=== PATIENT | female | born 1940 | race Caucasian/White ===

== ENCOUNTER 2023-01-17 07:30 | Outpatient (OUT) | payer MEDICARE, SELFPAY ==
[2023-01-17 08:48] LABS: Free T4 1.21 ng/dL (0.76-1.46); Thyroid Stimulating Hormone 0.078 uIU/mL (0.358-3.740)
[2023-01-18 04:07] LABS: Triiodothyronine (T3) 111 ng/dL (71-180)
== END 2023-01-17 07:31 | disposition home or self-care (01) ==
PROVIDERS: PCP Internal Medicine; Visit Provider Internal Medicine
DX: R79.89 Other specified abnormal findings of blood chemistry (principal); E05.90 Thyrotoxicosis, unspecified without thyrotoxic crisis or storm
CPT/HCPCS: 36415; 84439; 84443; 84480

== ENCOUNTER 2023-04-28 07:57 | Outpatient (OUT) | payer MEDICARE, SELFPAY ==
[2023-04-28 08:12] LABS: Estimated GFR (African America 57 (>=60); Estimated GFR (Non-African Ame 47 (>=60)
--- NOTE | 2023-04-28 08:12 | CT_ITS ---
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 TECHNIQUE: CT imaging was performed through the chest, abdomen, and pelvis with intravenous contrast, utilizing CTA protocol. Multiplanar reformats were performed. Dose reduction techniques were achieved by using automated exposure control and/or adjustment of mA and/or kV according to patient size and/or use of iterative reconstruction technique. CHEST FINDINGS: Lungs: No consolidation, mass, or effusion. Airways: Normal. Mediastinum: No adenopathy. Aorta: No aneurysm. Cardiac: Normal size. No pericardial effusion. Pulmonary vasculature: Normal morphology. Bones: No acute bony abnormality. Axilla: No adenopathy. Thyroid gland: No abnormality demonstrated on provided imaging. Soft tissues: Unremarkable. Upper abdomen: Unremarkable. VASCULAR FINDINGS: CTA CHEST: Pulmonary vasculature: Normal morphology. Coronary arteries: No variant anatomy is demonstrated. No significant atherosclerotic disease. Aorta: Ascending aorta measures 3.4 cm descending thoracic aorta measures up to 3 cm. No aneurysm, occlusion, or dissection. No significant atherosclerotic disease. Atherosclerotic: No significant atherosclerotic disease. Aortic branches: Normal three-vessel configuration.Right subclavian: Widely patent where visualized. Right common carotid: Widely patent where visualized. Left common carotid: Widely patent where visualized. Left subclavian: Widely patent where visualized. CT/CT angio chest IMPRESSION: 1. Ectatic ascending and descending thoracic aorta measuring 3.4 and 3 cm respectively. No evidence of dissection or occlusion. 2. No acute abnormality. Electronically authenticated by: TRAY EDEN Date: 04/29/2023 14:47
--- NOTE | 2023-04-28 08:12 | US_ITS ---
[address] [address] Patient Name: SHARON MCKEON MRN: [id number] date: 1940 Sex: F Assigned Patient Location: LAB Current Patient Location: LAB Accession/Order Number: [id number] Exam Date: 04/28/2023 08:21 Report Date: 04/28/2023 14:12 At the request of: JOLENE DENT Procedure: US thyroid EXAMINATION: US thyroid HISTORY: Thyroid Nodule E04.1 COMPARISON: 10/27/2021 TECHNIQUE: Sonographic images of the thyroid gland were obtained. FINDINGS: The right thyroid lobe measures 4.4 x 2.3 x 2.6 cm. 2 focal nodules. The thyroid isthmus measures 4.2 mm. 2 focal nodules. The left thyroid lobe measures 4.6 x 1.6 x 1.9 cm. 2 focal nodules. The 2 most suspicious nodules: Nodule 1: Right thyroid lobe. 1.5 x 1.3 x 1.6 cm. Solid, hypoechoic, wide, smooth margins, no calcifications. TR 4 Nodule 2: Left thyroid lobe. 1.9 x 1.1 x 1.5 cm. Solid, hypoechoic, wide, smooth margins, no calcifications. TR 4 US/US thyroid IMPRESSION: Multinodular thyroid gland, grossly stable TI-RADS: The [employer] TI-RADS committee's white paper recommendations for thyroid lesions classified as TR4 (moderately suspicious) are listed below: > 1.0 cm. Follow-up ultrasound in 1, 2, 3, and 5 years. > 1.5 cm. FNA. J. Am Halina Radiol 2017;14:[id number]. Electronically authenticated by: VIRI AJ Date: 04/28/2023 14:12
== END 2023-04-28 07:58 | disposition home or self-care (01) ==
LOC: LAB 07:58
PROVIDERS: PCP Internal Medicine; Visit Provider Internal Medicine
DX: E04.1 Nontoxic single thyroid nodule (principal); I71.21 Aneurysm of the ascending aorta, without rupture; C50.911 Malignant neoplasm of unspecified site of right female breast; E04.2 Nontoxic multinodular goiter
CPT/HCPCS: 36415; 71275; 76536; 82565; Q9967

== ENCOUNTER 2023-05-10 10:24 | Outpatient (OUT) | payer MEDICARE, SELFPAY ==
--- NOTE | 2023-05-10 | MM_ITS ---
Patient Name: SHARON MCKEON MR#: [id number] : 1940 Exam Date: 05/10/2023 Ordering Doctor: DR Andrae Bojorquez D.O. RADIOLOGY REPORT PROCEDURE: MM TOMOSYNTHESIS SCREENING LT COMPARISON: MG MAMM SCREEN LT 3D CAD, 05/09/2022. MG MAMM SCREEN LT 3D CAD, 05/06/2021. INDICATIONS: screening Calculator Name NCI Breast Cancer Risk Assessment Tool 5 Year Breast Cancer Risk n/a% Lifetime Breast Cancer Risk n/a% Personal Breast Cancer Yes, Rt Breast CA Age 71 Personal Ovarian Cancer No Treatments Masectomy RT Breast with chemotherapy Family Cancers None LOCATION: [facility] BREAST COMPOSITION: Heterogeneously dense,which may obscure small masses. FINDINGS: DIAGNOSTIC CATEGORY 1--NEGATIVE. NO CHANGE FROM COMPARISON ASSESSMENT. LEFT BREAST: No significant suspicious finding. RECOMMENDATIONS: ROUTINE MAMMOGRAM AND CLINICAL EVALUATION IN 12 MONTHS. PLEASE NOTE: A NORMAL MAMMOGRAM DOES NOT EXCLUDE THE POSSIBILITY OF BREAST CANCER. A CLINICALLY SUSPICIOUS PALPABLE LUMP SHOULD BE BIOPSIED. Dictated by: Jerald Pulliam MD on 05/10/2023 at 11:33 Approved by: Jerald Pulliam MD on 05/10/2023 at 11:35
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
== END 2023-05-10 10:25 | disposition home or self-care (01) ==
LOC: MAMMO 10:24
PROVIDERS: PCP Internal Medicine; Visit Provider Internal Medicine
DX: Z12.31 Encounter for screening mammogram for malignant neoplasm of breast (principal); Z85.3 Personal history of malignant neoplasm of breast
CPT/HCPCS: 77063; 77067

== ENCOUNTER 2024-04-17 12:42 | Outpatient (OUT) | payer MEDICARE, SELFPAY ==
[2024-04-17 13:12] LABS: Basophils Percent Auto 0.5 % (0.2-2.0); Eosinophils Absolute Auto 0.2 10^3/uL (0.0-0.7); Hematocrit 46.7 % (36.0-48.0); Hemoglobin 15.3 g/dL (12.0-16.0); Immature Granulocytes Abs Auto 0.03 10^3/uL (0.00-0.03); Immature Granulocytes Pct Auto 0.4 % (0.0-0.5); Lymphocytes Absolute Auto 1.3 10^3/uL (1.2-3.8); Lymphocytes Percent Auto 17.5 % (20.5-60.0); Mean Corpuscular HGB Conc 32.8 g/dL (29.9-35.2); Mean Corpuscular Hemoglobin 29.6 pg (26.7-34.0); Mean Corpuscular Volume 90.3 fL (81.0-99.0); Monocytes Absolute Auto 0.7 10^3/uL (0.3-0.8); Monocytes Percent Auto 9.4 % (1.7-12.0); Neutrophils Absolute Auto 5.2 10^3/uL (1.4-6.5); Neutrophils Percent Auto 70.2 % (43.0-75.0); Platelet Count 397 10^3/uL (150-450); Red Blood Count 5.17 10^6/uL (4.20-5.40); Red Cell Distribution Width 13.2 % (11.0-15.0); White Blood Count 7.5 10^3/uL (4.0-11.0)
[2024-04-17 13:41] LABS: Free T4 1.21 ng/dL (0.76-1.46)
[2024-04-17 13:51] LABS: Anion Gap 13.9; BUN Creatinine Ratio 16.9; Chloride 105 mmol/L (98-107); Estimated GFR (African America 45 (>=60 mL/min/1.73m^2); Estimated GFR (Non-African Ame 37 (>=60 mL/min/1.73m^2); Glucose 95 mg/dL (74-106); Potassium 3.9 mmol/L (3.5-5.1); Sodium 143 mmol/L (136-145)
[2024-04-17 13:52] LABS: Alanine Aminotransferase 16 U/L (14-59); Albumin Globulin Ratio 0.9; Albumin Level 3.4 g/dL (3.4-5.0); Alkaline Phosphatase 133 U/L (46-116); Aspartate Amino Transferase 13 U/L (15-37); Bilirubin Total 0.6 mg/dL (0.2-1.0); Globulin 3.9 g/dL; Total Protein 7.3 g/dL (6.4-8.2)
[2024-04-17 13:53] LABS: Cholesterol 226 mg/dL (<=200); HDL Cholesterol 56 mg/dL (40-60); Thyroid Stimulating Hormone 0.256 uIU/mL (0.358-3.740); Triglycerides 261 mg/dL (<=150); VLDL CHOLESTEROL 52.2 mg/dL
[2024-04-19 09:07] LABS: Triiodothyronine (T3) 109 ng/dL (71-180)
== END 2024-04-17 12:43 | disposition home or self-care (01) ==
LOC: LAB 12:48
PROVIDERS: PCP Internal Medicine; Visit Provider Internal Medicine
DX: E04.1 Nontoxic single thyroid nodule (principal); E05.90 Thyrotoxicosis, unspecified without thyrotoxic crisis or storm; R79.89 Other specified abnormal findings of blood chemistry; E78.00 Pure hypercholesterolemia, unspecified; I10 Essential (primary) hypertension; I67.2 Cerebral atherosclerosis; I48.19 Other persistent atrial fibrillation; I71.21 Aneurysm of the ascending aorta, without rupture
CPT/HCPCS: 36415; 80053; 80061; 84439; 84443; 84480; 85025

== ENCOUNTER 2024-05-13 08:30 | Outpatient (OUT) | payer MEDICARE, SELFPAY ==
--- NOTE | 2024-05-13 08:35 | MM_ITS ---
Patient Name: SHARON MCKEON MR#: [id number] : 1940 Exam Date: 05/13/2024 Ordering Doctor: DR Andrae Bojorquez D.O. RADIOLOGY REPORT PROCEDURE: MM SCREENING MAMMO UNILAT LT COMPARISON: MG MAMM SCREEN LT 3D CAD, 05/09/2022. MM TOMOSYNTHESIS SCREENING LT, 05/10/2023. INDICATIONS: Screening Calculator Name NCI Breast Cancer Risk Assessment Tool 5 Year Breast Cancer Risk n/a% Lifetime Breast Cancer Risk n/a% Personal Breast Cancer Yes, Rt Breast CA Age 71 Personal Ovarian Cancer No Treatments Masectomy RT Breast with chemotherapy Family Cancers None LOCATION: [facility] BREAST COMPOSITION: Heterogeneously dense, which may obscure small masses FINDINGS: Diagnostic category 1: Negative. No change from comparison assessment Left breast: Scattered vascular calcifications. Scattered benign-appearing lymph nodes are present. No new suspicious abnormality Recommendations: Routine mammogram and clinical evaluation 12 months PLEASE NOTE: A NORMAL MAMMOGRAM DOES NOT EXCLUDE THE POSSIBILITY OF BREAST CANCER. A CLINICALLY SUSPICIOUS PALPABLE LUMP SHOULD BE BIOPSIED. Dictated by: Jerald Pulliam MD on 05/13/2024 at 14:16 Approved by: Jerald Pulliam MD on 05/13/2024 at 14:18
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
== END 2024-05-13 08:31 | disposition home or self-care (01) ==
LOC: MAMMO 08:30
PROVIDERS: PCP Internal Medicine; Visit Provider Internal Medicine
DX: Z12.31 Encounter for screening mammogram for malignant neoplasm of breast (principal); Z85.3 Personal history of malignant neoplasm of breast
CPT/HCPCS: 77067

== ENCOUNTER 2025-04-21 08:08 | Outpatient (OUT) | payer MEDICARE, SELFPAY ==
--- OUTSIDE RECORDS SUMMARY | 2025-04-21 08:14 | XMS_ITS | CCD ---
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 ESTABLISHED BASED ON THE FOURTH UNIVERSAL DEFINITIONS OF MYOCARDIAL INFARCTION. THE UPPER REFERENCE LIMIT (URL) OF TROPONIN, DEFINED THE 99TH PERCENTILE OF cTnI DISTRIBUTION IN A REFERENCE POPULATION, HAS BEEN CONFIRMED THE DECISION THRESHOLD FOR MA DIAGNOSIS.Performed By: #### PT, PTT #### [facility] [address] [place] [address] Dr. Conrado Anderesn AUTO DIFFon 80-20-3585CWMY #0.1 103/ulNormal0.0-0.1[facility] HospitalComment on above:Performed By: #### PT, PTT #### [facility] [address] [place] [address] Dr. Conrado DonaldBasophils/100 WBC (Bld)0.7 %Normal0.2-2.0[facility] Comment on above:Performed By: #### PT, PTT #### [facility] [address] [place] [address] Dr. Conrado Harp #0.2 103/ulNormal0.0-0.7The [facility] DaytonComment on above: Performed By: #### PT, PTT #### [facility] [address] [place] [address] Dr. Conrado Morenoosinophils/100 WBC (Bld)2.0 %Normal0.9-7.0[facility] Comment on above:Performed By: #### PT, PTT #### [facility] [address] [place] [address] Dr. Conrado Morenorythrocyte distribution width (RBC) [Ratio]13.6 %Wzwjen01.0-15.0 [facility] HospitalComment on above:Performed By: #### PT, PTT #### [facility] [address] [place] [address] Dr. Conrado DonaldHematocrit (Bld) [Volume fraction]48.9 %Critically high36.0-48.0 [facility] HospitalComment on above:Performed By: #### PT, PTT #### [facility] [address] [place] [address] Dr. Conrado DonaldHemoglobin (Bld) [Mass/Vol]16.2 g/dLCritically high12.0-16.0The [facility] DaytonComment on above:Performed By: #### PT, PTT #### [facility] [address] [place] [address] Dr. Conrado Nino #0.03 10e3/ulNormal0.00-0.03The [facility] DaytonComment on above:Performed By: #### PT, PTT #### [facility] [address] [place] [address] Dr. Conrado Nino %0.4 %Normal0.0-0.5The [facility] DaytonComment on above: Performed By: #### PT, PTT #### [facility] [address] [place] [address] Dr. Conrado Patrick #1.7 103/ulNormal1.2-3.8The [facility] DaytonComment on above:Performed By: #### PT, PTT #### [facility] [address] [place] [address] Dr. Conrado Mathewhocytes/100 WBC (Bld)20.4 %Critically low20.5-60.0[facility] on above:Performed By: #### PT, PTT #### [facility] [address] [place] [address] Dr. Conrado ShortUAL DIFF REQNONormalThe [facility] DaytonComment on above: Performed By: #### PT, PTT #### [facility] [address] [place] [address] Dr. Conrado Gomez (RBC) [Entitic mass]29.3 zzKuyfqj38.7-34.0The [facility] DaytonComment on above:Performed By: #### PT, PTT #### [facility] [address] [place] [address] Dr. Conrado Gomez (RBC) [Mass/Vol]33.1 g/rFNbkiwj97.9-35.2The [facility] DaytonComment on above:Performed By: #### PT, PTT #### [facility] [address] [place] [address] Dr. Conrado GomezV (RBC) [Entitic vol]88.6 zPNtvgmf08.0-99.0The [facility] DaytonComment on above:Performed By: #### PT, PTT #### [facility] [address] [place] [address] Dr. Conrado Avery #0.7 103/ulNormal0.3-0.8The [facility] DaytonComment on above:Performed By: #### PT, PTT #### [facility] [address] [place] [address] Dr. Conrado Merrillocytes/100 WBC (Bld)9.1 %Normal1.7-12.0The [facility] on above:Performed By: #### PT, PTT #### [facility] [address] [place] [address] Dr. Conrado Machuca #5.5 103/ulNormal1.4-6.5The [facility] DaytonComment on above:Performed By: #### PT, PTT #### [facility] [address] [place] [address] Dr. Conrado Foremanutrophils/100 WBC (Bld)67.4 %Ehqiga52.0-75.0The [facility] DaytonComment on above:Performed By: #### PT, PTT #### [facility] [address] [place] [address] Dr. Conrado Wilsonlet mean volume (Bld) [Entitic vol]10.0 fLNormal9.5-13.5The [facility] DaytonComment on above:Performed By: #### PT, PTT #### [facility] [address] [place] [address] Dr. Conrado Jewell409 103/osJulzye068-108Gek [facility] DaytonComment on above: Performed By: #### PT, PTT #### [facility] [address] [place] [address] Dr. Conrado DonaldRBC5.52 106/ulCritically high4.20-5.40[facility] Comment on above:Performed By: #### PT, PTT #### [facility] [address] [address] [address] Conrado DonaldWBC8.1 103/ulNormal4.0-11.0The [facility] DaytonComment on above: Performed By: #### PT, PTT #### [facility] [address] [address] [address] Conrado DonaldLIPID PROFILEon 71-20-3014BAVG-HDL RATIO NORMSEE [facility] CenterComment on above:Result Comment: 3.3 - 4.4 LOW RISK 4.4 - 7.1 AVERAGE RISK 7.1 - 11.0 MODERATE RISK >11.0 HIGH RISKPerformed By: #### PT, PTT #### [facility] [address] [address] [address] Conrado DonaldCholesterol [Mass/Vol]219 mg/dLCritically high<=200The [facility] DaytonComment on above:Performed By: #### PT, PTT #### [facility] [address] [address] [address] Conrado Murrayesterol in HDL [Mass/Vol]57 mg/bVPjdnzv77-82Nzg [facility] DaytonComment on above:Performed By: #### PT, PTT #### [facility] [address] [address] [address] Conrado DonaldCholesterol in LDL [Mass/Vol]119.6 mg/dLOhioHealth Mansfield HospitalComment on above:Performed By: #### PT, PTT #### [facility] [address] [address] [address] Conrado Murrayestersadie.total/Cholesterol in HDL [Mass ratio]3.8 {ratio} NormalThe [facility] DaytonCombronson [facility] on above:Performed By: #### PT, PTT #### [facility] [address] [address] [address] Conrado Hall NORMAL> or = 60 mg/dl - LOW CARDIOVASCULAR RISK <40 mg/dl - HIGH CARDIOVASCULAR RISKOhioHealth Mansfield HospitalComment on above:Performed By: #### PT, PTT #### [facility] [address] [address] [address] Conrado DonaldLDL CALC NORMALSEE BELOWOhioHealth Mansfield HospitalComment on above:Result Comment: <100 mg/dl OPTIMAL 100 - 129 mg/dl NEAR OR ABOVE OPTIMAL 130 - 159 mg/dl BORDERLINE HIGH 160 - 189 mg/dl HIGH >190 mg/dl VERY HIGH Performed By: #### PT, PTT #### [facility] [address] [address] [address] Conrado DonaldTriglyceride [Mass/Vol]212 mg/dLCritically high<=150[facility] on above:Performed By: #### PT, PTT #### [facility] [address] [address] [address] Conrado DonaldVLDL CALC42.4 mg/dLOhioHealth Mansfield HospitalComment on above: Performed By: #### PT, PTT #### [facility] [address] [address] [address] Conrado DonaldMG MAMM SCREEN LT 3D CADon 56-69-9639ER MAMM SCREEN LT 3D CAD Patient: SHARON SHELTON Exam Date: 05/09/2022 : 1940 Gender:F Ordering : DR ANDRAE BOJORQUEZ D.O. Admission #: [id number] Family : Order #: [id number] CLICK HERE TO VIEW EXAM RADIOLOGY REPORT [...] Family Cancers None LOCATION: The [facility] BREAST COMPOSITION: Heterogeneously dense,which may obscure small [...] by: Surya Lomeli M.D. on 05/09/2022 at 14:16OhioHealth Mansfield HospitalPROF CHEM 8 (BAS METB)on 11-95-2785Ldpjc gap [Moles/Vol]9.8 mmol/LNormal The [facility] DaytonComment on above:Performed By: #### PT, PTT #### [facility] [address] [place] [address] Dr. Conrado DonaldCalcium [Mass/Vol]10.0 mg/dLNormal8.5-10.1[facility] Comment on above:Performed By: #### PT, PTT #### [facility] [address] [place] [address] Dr. Conrado DonaldChloride [Moles/Vol]105 mmol/JMphfya69-035GmzMartin Memorial Hospital Comment on above:Performed By: #### PT, PTT #### [facility] [address] [place] [address] Dr. Conrado DonaldCO2 [Moles/Vol]32.7 mmol/LCritically high21.0-32.0[facility] HospitalComment on above:Performed By: #### PT, PTT #### [facility] [address] [place] [address] Dr. Conrado DonaldCreatinine [Mass/Vol]1.05 mg/dLCritically high0.55-1.02[facility] HospitalComment on above:Performed By: #### PT, PTT #### [facility] [address] [place] [address] Dr. Conrado MorenoGFR-AF SLOVAK>60Normal>=60The [facility] DaytonComment on above:Performed By: #### PT, PTT #### [facility] [address] [place] [address] Dr. Conrado MorenoGFR-NON AF CKIWOPNJ45 mL/min/1.62j4Tkfnhlqngb low>=60The [facility] DaytonComment on above:Performed By: #### PT, PTT #### [facility] [address] [address] [address] Conrado DonaldGlucose [Mass/Vol]91 mg/aQLcfsnm19-055Jeq [facility] Comment on above:Performed By: #### PT, PTT #### [facility] [address] [address] [address] Conrado DonaldPotassium [Moles/Vol]4.5 mmol/LNormal3.5-5.1[facility] Comment on above:Performed By: #### PT, PTT #### [facility] [address] [address] [address] Conrado DonaldSodium [Moles/Vol]143 mmol/YMxgxel339-689Lce [facility] Comment on above:Performed By: #### PT, PTT #### [facility] [address] [address] [address] Conrado DonaldUrea nitrogen [Mass/Vol]26.0 mg/dLCritically high7.0-18.0The [facility] DaytonComment on above:Performed By: #### PT, PTT #### [facility] [address] [place] [address] Dr. Conrado Young nitrogen/Creatinine [Mass ratio]24.8 mg/mgNormalThe [facility] DaytonComment on above:Performed By: #### PT, PTT #### [facility] [address] [place] [address] Dr. Conrado DonaldUS THYROID FN ASP BXon 75-48-6063HZ THYROID FN ASP BX Begin Addendum #1 COLLECTED DATE/TIME: 01/20/2022 12:18 EDT Final Diagnosis Report for THE [place], [place] (A/B) RIGHT INFERIOR LOBE THYROID NODULE, ULTRASOUND-GUIDED FINE NEEDLE ASPIRATION: -BENIGN 01/26/[address] Bojorquez. Verified with Cherrie that report was present [...] needle aspiration (FNA). 2. Pathology results are pending.NormalThe [facility] Vital Signs Date TimeVital SignValuePerforming UcwrmsknaIvzvpjdr76-41-8650 11:34-0400Body uxsqtu247.64 cmBenjamin Ball DO Work Phone: [phone]08-14-2025 11:34-0400 Body mass index (BMI) [Ratio]21.7 kg/z4Xmsemplz Ball DO Work Phone: [phone] [place], [place] 1577808-14-2025 11:34-0400 Body ebblyt67.23 kgBenjamin Ball DO Work Phone: [phone] [place], [place] 1577808-14-2025 11:34-0400 Diastolic blood rqgoyvde78 mm[Hg]Andrae Ball DO Work Phone: 1(419)[address] [place], [place] 1577808-14-2025 11:34-0400 Heart rate68 /minBenjamin Ball DO Work Phone: 1(419)[address] [place], [place] 1577808-14-2025 11:34-0400 Respiratory rate12 /minBenjamin Ball DO Work Phone: [phone] [place], [place] 1577808-14-2025 11:34-0400 Systolic blood mm[Hg]Andrae Ball DO Work Phone: 1(419)[address] [place], [place] 1577807-29-2025 09:17-0400 Body curseb657.64 cmBenjamin Ball DO Work Phone: [phone])[address] [place], [place] 1577807-29-2025 09:17-0400 Body mass index (BMI) [Ratio]21.8 kg/j7Ccldnood Ball DO Work Phone: [phone]07-29-2025 09:17-0400 Body kgnana65.34 kgBenjamin Ball DO Work Phone: [phone])[address] [place], [place] 1577807-29-2025 09:17-0400 Diastolic blood ofmduhkf80 mm[Hg]Andrae Ball DO Work Phone: 1(419)[address] [place], [place] 1577807-29-2025 09:17-0400 Heart rate73 /minBenjamin Ball DO Work Phone: [phone])[address] [place], [place] 1577807-29-2025 09:17-0400 Respiratory rate12 /minBenjamin Ball DO Work Phone: [phone])[address] [place], [place] 1577807-29-2025 09:17-0400 Systolic blood offbjchn112 mm[Hg]Andrae Ball DO Work Phone: [phone])[address] [place], [place] 1577806-23-2025 10:44-0400 Body .64 cmBenjamin Ball DO Work Phone: [phone])[address] [place], [place] 1577806-23-2025 10:44-0400 Body mass index (BMI) [Ratio]22.4 kg/z7Amqdyrrp Ball DO Work Phone: [phone])[address] [place], [place] 1577806-23-2025 10:44-0400 Body duuumn19.16 kgBenjamin Ball DO Work Phone: 1([phone] [place], [place] 1577806-23-2025 10:44-0400 Diastolic blood wiiqlzfs37 mm[Hg]Andrae Ball DO Work Phone: [phone])[address] [place], [place] 1577806-23-2025 10:44-0400 Heart rate62 /minBenjamin Ball DO Work Phone: 1419)[facility] [place], [place] 3520506-23-2025 10:44-0400 Respiratory rate12 /minBenjamin Ball DO Work Phone: [phone])[facility] [place], [place] 3520506-23-2025 10:44-0400 Systolic blood qlqotutn981 mm[Hg]Andrae Bojorquez DO Work Phone: [facility]04-18-2025 11:02-0400 Body emfdtx022.64 cmC[facility]04-18-2025 11:02-0400Body mass index (BMI) [Ratio]21.8 kg/v3TsxngaehtC[facility] Clinic [facility]04-18-2025 11:02-0400Body .34 kgC[facility]04-18-2025 11:02-0400Diastolic blood raejgjuu63 mm[Hg][facility] 09-06-2024 11:02-0400Heart rate76 /[facility] 09-06-2024 11:02-0400Respiratory rate12 /[facility] 09-06-2024 11:02-0400Systolic blood dkglowlu098 mm[Hg][facility]08-07-2024 11:53-0400Body .64 cmC[facility]08-07-2024 11:53-0400Body mass index (BMI) [Ratio]22.1 kg/l3LlzbcsmxiC[facility] Clinic [facility]08-07-2024 11:53-0400Body .36 kgC[facility]08-07-2024 11:53-0400Diastolic blood pzoflgyx83 mm[Hg] [facility]08-07-2024 11:53-0400Heart rate72 /[facility]08-07-2024 11:53-0400Respiratory rate12 /[facility]08-07-2024 11:53-0400Systolic blood wwnlicfi100 mm[Hg] [facility]07-13-2024 11:59-0400Diastolic blood vvhimtnm01 mm[Hg][facility]07-13-2024 11:59-0400Heart rate63 /min [facility]07-13-2024 11:59-0400Respiratory rate16 /min [facility]07-13-2024 11:59-4585CmL7% (BldA) [Mass fraction]94 %[facility]07-13-2024 11:59-0400Systolic blood akjnizui850 mm[Hg][facility]03-20-2024 10:35-0400 Body pypnzq523.64 cmC[facility]03-20-2024 10:35-0400Body mass index (BMI) [Ratio]22.9 kg/n8RjiqkaxyuC[facility]03-20-2024 10:35-0400Body kymgjf99.52 kgC[facility]03-20-2024 10:35-0400Diastolic blood uamktpar44 mm[Hg][facility] 08-09-2023 10:35-0400Heart rate69 /[facility] 08-09-2023 10:35-0400Respiratory rate16 /[facility] 08-09-2023 10:35-0400Systolic blood uuvqfwnd396 mm[Hg][facility]03-04-2024 16:03-0500Body .64 cmC[facility]03-04-2024 16:03-0500Body mass index (BMI) [Ratio]23.1 kg/y3BctuvqtouC[facility] Clinic [facility]cre[facility] Hospital03-04-2024 16:03-0500Body nezzpa35.97 kgC[facility] Clinic [facility]03-04-2024 16:03-0500Diastolic blood vieucftn538 mm[Hg] [facility]03-04-2024 16:03-0500Heart rate74 /[facility]03-04-2024 16:03-0500Respiratory rate12 /[facility]03-04-2024 16:03-0500Systolic blood mm[Hg] [facility]11-20-2023 10:30-0500Body odhtcl767.64 cm Andrae Ball Other [employer] Other [id number] 10:30-0500Body mass index (BMI) [Ratio] 23.34 kg/o6Njmomnoh Ball Other [employer] Other 11-20-2023 10:30-0500Body rwqxaw27.59 kgBenjamin Ball Other [employer] Other 11-20-2023 10:30-0500Diastolic blood mqsiryww69 mm[Hg] Andrae Ball Other [employer] Other 11-20-2023 10:30-0500Respiratory rate12 /minBenjamin Ball Other [employer] Other 11-20-2023 10:30-0500Systolic blood mm[Hg] Andrae Ball Other [employer] Other 08-18-2023 10:00-0400Body huemfw363.64 cmBenjamin Ball Other [employer] Other 08-18-2023 10:00-0400Body mass index (BMI) [Ratio] 21.63 kg/w4Ootlisiq Ball Other [employer] Other 08-18-2023 10:00-0400Body ujadfq27.78 kgBenjamin Ball Other [employer] Other 08-18-2023 10:00-0400Diastolic blood ojmqejde33 mm[Hg] Andrae Ball Other [employer] Other 08-18-2023 10:00-0400Respiratory rate12 /minBenjamin Ball Other [employer] Other 08-18-2023 10:00-0400Systolic blood nuuxvuod144 mm[Hg] Andrae Ball Other [employer] Other 04-21-2023 11:30-0400Body kuinzi260.64 cmBenjamin Ball Other [employer] Other 04-21-2023 11:30-0400Body mass index (BMI) [Ratio] 24.56 kg/e2Bohjysjz Ball Other [employer] Other 04-21-2023 11:30-0400Body osyzse17.04 kgBenjamin Ball Other [employer] Other 04-21-2023 11:30-0400Diastolic blood dukeninj82 mm[Hg] Andrae Ball Other [employer] Other 04-21-2023 11:30-0400Respiratory rate12 /minBenjamin Ball Other [employer] Other 04-21-2023 11:30-0400Systolic blood verxzrdk443 mm[Hg] Andrae Ball Other [employer] Other Encounters Encounter DateEncounter TypeCare ProviderFacilityStart: 01-02-2025 End: 29-38-3938cniahjwtdwXlacczyk Ball DO Work Phone: [facility] Work Phone: Start: 01-02-2025 End: 24-12-2308Hftxcuz encounter procedureBenjamin Ball DO-[facility] Work Phone: Start: 12-17-2024 End: 99-89-6608bibkjksqyiZfzjeabm Ball DO Work Phone: [facility] Work Phone: Start: 12-17-2024 End: 76-29-1630Nmtglqe encounter procedureBenjamin Ball DO-[facility] Work Phone: Start: 11-11-2024 End: 97-12-8866Cvrsjkp encounter procedureBenmalini Bojorquez DO-[facility] Work Phone: Start: 09-06-2024 End: 63-60-5185ccwvqvoipdYwfkxkcjyBlanchard [facility] System Work Phone: Start: 09-06-2024 End: 98-75-1918Agxkwrl encounter procedureFirinova [facility] Work Phone: Start: 07-10-2024 End: 23-91-6788Hdhwnfm encounter procedureNoms Sh Aud Audiology Aid - Angela DodrillNOMS CI AUDComment on above:Sensorineural hearing loss (SNHL) of both ears (Primary Dx)Start: 07-10-2024 End: 38-28-8484grddlcoczqGDGNXDJ MCGILLNot AvailableStart: 06-12-2024 End: 91-09-8641Enqcpxt encounter procedureNoms Aud Audiology Aid - Angela DodrillNOMS CI AUDComment on above:Sensorineural hearing loss (SNHL) of both earsStart: 06-12-2024 End: 85-20-2492rrdnzeoshuSRLAWQX MCGILLNot AvailableStart: 04-30-2024 End: 48-67-4793Ikowidgl SupportDeborah A Cat CCC-A Work Phone: noms AUDComment on above:Sensorineural hearing loss (SNHL) of both ears (Primary Dx)Start: 04-30-2024 End: 60-13-2266fuioecrnplZMMKTYO A MCGILLNot AvailableStart: 04-30-2024 End: 37-45-4365Zydjlb flowsheetDeborah A Cat CCC-A Work Phone: noMS AUDStart: 04-30-2024 End: 61-48-8842Oxqrhh flowsheetDeborah A Cat CCC-A Work Phone: noms AUDStart: 58-10-8089Iajjnpa encounter procedureUniversity Hospitals TriPoint Medical Centertart: 12-27-2023 End: 18-93-7913nmddwtlmcpIggpqafskBlanchard [facility] System Work Phone: Start: 12-27-2023 End: 35-20-7106Eeaoxfs encounter procedureGopalinova [facility] Work Phone: Start: 12-02-2023 End: 15-42-0286zmxyciwyelOhskdufxmParkview Health Work Phone: Start: 12-02-2023 End: 06-63-6639Dtyverx encounter procedureJonas Physician [facility] Work Phone: Start: 08-09-2023 End: 46-35-1575djjcgbrrjoBmmysopvdParkview Health Work Phone: Start: 08-09-2023 End: 71-30-6499Npjyqpx encounter procedureJonas [facility] Work Phone: Start: 07-24-2023 End: 41-76-3087Bsmswoh encounter procedureGopalinova [facility] Work Phone: Start: 05-11-2023 End: 63-21-6086bsjscamnjjGvouhvkg Ball Other [employer] Other Start: 95-04-5402Zwiemzaok encounterBenjamin BallFPG [facility] ClinicStart: 05-01-2023 End: 69-48-8974ekeooktdxqJdziqxsx Ball Other [employer] Other Start: 36-33-8212Bltnfrkwg encounterBenjamin BallFPG [facility] ClinicStart: 04-30-2023 End: 14-37-5200wkhncofjtfLbfxdbqv Ball Other [employer] Other Start: 81-65-1617Hwsrsypdn encounterBenjamin BallFPG [facility] ClinicStart: 04-28-2023 End: 73-20-4716qyubivhdhiChvsulsj Ball Other [employer] Other Start: 96-76-6632Byvqfghpk encounterBenjamin BallFPG [facility] ClinicStart: 04-26-2023 End: 34-73-3456cldphvlfwiBrljgzsv Ball Other [employer] Other Start: 43-07-2498Zgnmjojbl encounterBenjamin BallFPG [facility] ClinicStart: 04-25-2023 End: 69-91-9763yfgulbdywlBysrtgxr Ball Other [employer] Other Start: 44-01-5256Cuawaequi encounterBenjamin BallFPG [facility] ClinicStart: 04-10-2023 End: 08-38-5354ncfnxuupetUojcxueq Ball Other [employer] Other Start: 95-56-8908Mxjtreq encounter procedureBenjamin BallFPG [facility] ClinicStart: 02-22-2023 End: 59-80-8863kkfulkhypzRcocwnzf Ball Other [employer] Other Start: 59-68-5581Euilmdyrj encounterBenjamin BallFPG [facility] ClinicStart: 01-19-2023 End: 62-85-6038rcdpktjtwdRcvcqymz Ball Other [employer] Other Start: 92-91-4668Gixhcbdbr encounterBenjamin BallFPG [facility] ClinicStart: 01-09-2023 End: 28-27-5641kekbbpnsicWcwzxdlw Ball Other [employer] Other Start: 51-46-9187Uhaxgaybh encounterBenjamin BallFPG [facility] ClinicStart: 01-06-2023 End: 74-84-7410wlwzahssvqErivdnwe Ball Other [employer] Other Start: 21-57-5863Szuyco outpatient visit 25 minutes Andrae [facility]Start: 09[facility]2022 End: 29-60-2158adbhzelpsqXwudtdsd Ball Other noControlCircle Other Start: 01-18-4646Pkrieuvka encounterBenmalini SepulvedaG Ball Medical ClinicStart: 09-09-2022 End: 70-72-2744wvawbaxzwjPvxuhrdy Ball Other noControlCircle Other Start: 43-41-4160Xrkboe outpatient visit 25 minutes [facility]Start: 09-[facility]2022 End: 49-00-7868nzmnntnbydOF ANDRAE BALLFacility:B2Fsxpm: 08-10-2022 End: 46-68-8883fshybuemprOX ANDRAE BALLFacility:S6Ogomr: 05-09-2022 End: 84-81-9066rtflazwzmyHB ANDRAE BALLFacility:E1Eidne: 01-20-2022 End: 96-78-3035wnmnthyqayRP ANDRAE BALLFacility:H1 Procedures DateProcedureProcedure DetailPerforming ClinicianStart: 95-25-6460QXPRFAKD FUNCTION TESTSDesocorro [facility] Work Phone: depression screeningBeisidro Ball Other Plan of Treatment DateCare ActivityDetailAuthorStart: 07-10-2024 End: 21-44-4116Nzcnvyi encounter jliwxxxcr66/19/2025 11:00 AM EST Office Visit [facility] [address] [place] [address] ODOO CI AUDStart: 06-12-2024 End: 98-78-0356Apxwnbb encounter /22/2025 10:00 AM EST Office Visit [facility] [address] [place] [id number] [phone] CI AUDStart: 04-30-2024 End: 48-68-2905Xqiwhthv Ypievrz2004/30/2024 2:30 PM EST Clinical Support [facility] [address] [facility] [id number] Loyda Shelton, [facility] [address] [facility] [place] [address] ArrivedNOMISSOURI [facility] AUDComment on above:ArrivedStart: 01-21-2024 Influenza vaccinationInfluenza Vaccine (#1)[facility] HealthcareStart: 03-01-2022 Pneumococcal Vaccine: 65+ Years (2 of 2 - PPSV23 or PCV20)Pneumococcal Vaccine: 65+ Years (2 of 2 - PPSV23 or PCV20)[facility] Immunizations Immunization DateImmunizationNotesCare KwemcpfnLygoirdg40-06-2501maqwgoisc virus vaccine, unspecified formulationDesocorro Shelton [facility] Work Phone: NONJ Fydbjheafl84-55-9610vlfcbyxqp virus vaccine, unspecified formulation[facility]11-20-2023influenza, high dose seasonal, preservative-freeShernmalini Bojorquez Other [facility] Other [id number] virus vaccine, split virus (incl. purified surface antigen)Andrae Bojorquez Other [facility] Other [id number] virus vaccine, unspecified formulationC[facility]10-28-2021influenza virus vaccine, split virus (incl. purified surface antigen)Andrae Bojorquez Other [facility] Other [id number] virus vaccine, unspecified formulationC[facility]09-18-2020influenza virus vaccine, split virus (incl. purified surface antigen)Andrae Bojorquez Other noControlCircle Other [id number] virus vaccine, unspecified formulationC[facility]10-29-2019influenza virus vaccine, split virus (incl. purified surface antigen)Andrae Bojorquez Other noControlCircle Other [id number] virus vaccine, unspecified formulationC[facility]09-10-2018influenza virus vaccine, split virus (incl. purified surface antigen)Andrae Bojorquez Other noControlCircle Other [id number] virus vaccine, unspecified formulationC[facility]10-18-2017influenza virus vaccine, split virus (incl. purified surface antigen)Andrae Bojorquez Other [facility] Other [id number] virus vaccine, unspecified formulationC[facility]09-21-2016influenza virus vaccine, split virus (incl. purified surface antigen)Andrae Bojorquez Other noControlCircle Other [id number] virus vaccine, unspecified formulationC[facility]06-28-2016pneumococcal conjugate vaccine, 13 valentBenmalini Bojorquez Other [facility]09-17-2015influenza virus vaccine, split virus (incl. purified surface antigen)Andrae Bojorquez Other [facility] Other [id number] virus vaccine, unspecified formulationC[facility]09-19-2013tetanus and diphtheria toxoids, adsorbed, preservative free, for adult use (5 Lf of tetanus toxoid and 2 Lf of diphtheria toxoid)Andrae Bojorquez Other [facility] Payers DatePayer CategoryPayerPolicy [id number] (Managed Care) [id number] [id number] [id number] [id number] [id number] [id number] [id number] Social History DateTypeDetailFacilitySex Assigned At BirthNoControlCircle Other Start: 65-97-7587Nrqrzsh smoking status NHISEx-smoker (finding)[facility] Centertart: 94-92-6009Das Assigned At FemaleCleveland Clinic Hillcrest HospitalTobacco smoking status NHISTobacco smoking consumption unknownNONJ HealthcareStart: 88-54-2981Fsm assigned at Not on fileNONJ HealthcareStart: 07-05-3344BuzIfrppr (finding)[facility] Clinical Notes 09-09-2022 to 11-11-2024 Note Date & UkogUbklMtjuwihs54-89-7198 Evaluation note* Diagnosis Onset Date Resolution Status Admit Date Essential hypertension acuteJune 2024 10:37amExcessive cerumen in both ear canalsacuteJun2024 10:37amSensorineural hearing loss (SNHL) of both earsacuteJune 2024 10:37am [facility] Work Phone: 1(592) 765-500606-23-2025 Evaluation note* Diagnosis Onset Date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
--- OUTSIDE RECORDS SUMMARY | 2025-04-21 08:14 | XMS_ITS | Clinical Summary ---
Author Organization [facility] Address [address] [place], [place] [address] Care Team Providers Care Wood Last Maker Name Role Phone Andrae Bojorquez DO Primary Care Provider [phone] Allergies No known active allergies Medications MedicationSigDispense QuantityRefillsLast FilledStart DateEnd DateStatus benazepril 10 mg tablet Take 20 mg by mouth once daily.Active anastrozole (ARIMIDEX) 1 mg tablet Take 1 tablet by mouth once daily. 90 tablet Active alendronate (FOSAMAX) 35 mg tablet Take 1 tablet by mouth once each week. 12 tablet Active Active Problems ProblemNoted DateDiagnosed DateTobacco abuse12/16/2013HypertensionBreast cancer Family History Medical HistoryRelationCommentsNoneFatherNoneMotherHypertensionSister 2Relation StatusCommentsFatherDeceasedMotherDeceasedSister 1AliveSister 2 Social History Tobacco UseTypesPacks/DayYears UsedDateSmoking Tobacco: Every DayCigarettes Smokeless Tobacco: NeverAlcohol UseStandard Drinks/WeekCommentsNo0 (1 standard drink = 0.6 oz pure alcohol)PHQ-2AnswerDate RecordedPHQ-2 gzlto004Area Deprivation IndexAnswerDate RecordedNational Score (1-100), lower number is lower riskNot on file04/29/2020State Score (1-10), lower number is lower riskNot on file04/29/2020Data from: https://www.neighborhoodatlas.medicine.[facility].edu/. Last address used for calculationNot on file04/29/2020CommentsNoSex and Gender InformationValueDate RecordedSex Assigned at BirthNot on fileLegal Sex Qwsvju6905/17/2012 1:43 PM ESTGender IdentityNot on fileSexual OrientationNot on file Last Filed Vital Signs Vital SignReadingTime TakenCommentsBlood Cusczssk005/8406 1:44 PM EDT Upjmu694410/30/2017 1:44 PM RLUCidkzxmvntf13 ??C (98.6 ??F)10/30/2017 1:44 PM EDT Respiratory Emyg6647 1:44 PM EDTOxygen Uwvxelgbpe76%10/30/2017 1:44 PM EDTInhaled Oxygen Concentration--Ivsbjb26.4 kg (155 lb 3.2 oz)10/30/2017 1:44 PM TMCYeqxie782.2 cm (5' 7.01 )10/30/2017 1:44 PM EDTBody Mass Index24. 1:44 PM EDT Plan of Treatment Health MaintenanceDue DateLast DoneCommentsAnxiety Fojqgzqqf47/23/1961Depression Igouahynl01/23/1961DTaP,Tdap,Td Vaccine (1 - Tdap)2Pneumococcal Vaccine: 50+ (1 of 1 - PCV)1992Shingrix Vaccine (1 of 2)1992Bone Density Tglrvlpzu08/23/2008RSV Vaccine (1 - 1-dose 75+ series)2017Diabetes Kmeahwexo96, 11/07/2016, 05/09/2016, Additional history exists Advance Directive Ecdgegtamr01/01/2025Covid-19 Vaccine ( season) 2025Influenza Vaccine (#1)2025 Procedures Procedure NamePriorityDate/TimeAssociated DiagnosisCommentsBASIC METABOLIC PANEL Mtgnnqe4105/08/2017 11:04 AM EST Malignant neoplasm of right breast in female, estrogen receptor positive, unspecified site of breast (HCC) from Last 3 Months or Most Recently Relevant to Health Maintenance Results * (ABNORMAL) BASIC METABOLIC PNL (05/08/2017 11:04 AM EST)ComponentValueRef RangeTest MethodAnalysis TimePerformed AtPathologist BicrcbhchWczymnm7437 - 99 mg/dL05/09/2017 5:52 AM [facility] LABORATORYComment: The [place] Diabetes Association (ADA) provides guidance for cutoff values for fasting glucose and random glucose. The ADA defines fasting as no caloric intake for at least 8 hours. Fasting plasma glucose results between 100 to 125 mg/dL indicate increased risk for diabetes (prediabetes). Fasting plasma glucose results greater than or equal to 126 mg/dL meet the criteria for diagnosis of diabetes. In the absence of unequivocal hyperglycemia, results should be confirmed by repeat testing. In a patient with classic symptoms of hyperglycemia or hyperglycemic crisis, random plasma glucose results greater than or equal to 200 mg/dL meet the criteria for diagnosis of diabetes. Reference: Standards of Medical Care in Diabetes 2016, [place] Diabetes Association. Diabetes Care. 2016.39(Suppl 1). IWI921 - 21 mg/dL05/09/2017 5:52 AM [facility] Creatinine0.97(H)0.58 - 0.96 mg/dL05/09/2017 5:52 AM [facility] KEKDWRHVIXDnzulr576(H)136 - 144 mmol/L107/10/2016 5:52 AM [facility] LABORATORYPotassium4.23.7 - 5.1 mmol/L107/10/2016 5:52 AM [facility] FYUABAETSQHrwqrhiz82504 - 105 mmol/L107/10/2016 5:52 AM [facility] FUZAPXAGFKUZ69211 - 30 mmol/L107/10/2016 5:52 AM [facility] LABORATORYAnion Nbp852 - 18 mmol/L107/10/2016 5:52 AM [facility] MQSTHFIDUAGtcnmkx66.08.5 - 10.2 mg/dL05/09/2017 5:52 AM [facility] LABORATORYeGFR->6005/09/2017 5:52 AM [facility] LABORATORYeGFR-All Other Races56.05/09/2017 5:52 AM [facility] LABORATORYComment: eGFR (Estimated GFR) Units of measure: mL/min/1.73 meters squared eGFR is derived from the reexpressed MDRD Study equation using the following parameters: serum creatinine, age, gender and race. The creatinine assay has been calibrated to be traceable to IDMS. An eGFR <60 mL/min/1.73m2 for >3 months is consistent with chronic kidney disease. Refer to KDOQI guidelines for clinical interpretation. In patients with unstable renal function, e.g. those with acute kidney injury, the eGFR may not accurately reflect actual GFR. Specimen (Source)Anatomical Location / LateralityCollection Method / Volume Collection TimeReceived TimeBlood specimen (specimen)05/08/2017 11:04 AM EST 05/08/2017 11:07 AM EST Narrative Authorizing ProviderResult TypeResult StatusRegina WAGNER-CLABORATORYFinal ResultPerforming OrganizationAddressCity/State/ZIP CodePhone Number [facility] [address] [place] [address] from Last 3 Months or Most Recently Relevant to Health Maintenance Insurance Care Teams Team MemberRelationshipSpecialtyStart DateEnd Date Andrae Bojorquez DO PCP - GeneralInternal Bogeyflt01/27/12
--- OUTSIDE RECORDS SUMMARY | 2025-04-21 08:14 | XMS_ITS | Clinical Summary ---
Author Organization [facility] Address [address] [place] [address] Phone Care Team Providers Care Reset Merchandiser Name Role Phone Unavailable Primary Care Provider Unavailabl e Social History Tobacco UseTypesPacks/DayYears UsedDateSmoking Tobacco: Never Assessed CommentsUnknownSex and Gender InformationValueDate RecordedSex Assigned at Not on fileLegal QiuBsauxi37/26/2022 1:59 AM ESTGender IdentityNot on fileSexual OrientationNot on file Plan of Treatment Not on file
--- OUTSIDE RECORDS SUMMARY | 2025-04-21 08:14 | XMS_ITS | Clinical Summary ---
Author Organization [facility] Address [address] [place] [address] Care Team Providers Care Vortex Operator Name Role Phone Unavailable Primary Care Provider Unavailabl e Social History Tobacco UseTypesPacks/DayYears UsedDateSmoking Tobacco: Never AssessedUT Safety & EnvironmentAnswerDate RecordedFear of Current or Ex-PartnerNot on file 07/13/2023Emotionally AbusedNot on file07/13/2023hysically AbusedNot on file 07/13/2023Sexually AbusedNot on file07/13/2023hysically or Sexually AbusedNot on file07/13/2023CommentsUnknownSex and Gender InformationValueDate RecordedSex Assigned at BirthNot on fileLegal QusKxzwqw95/30/2022 12:44 AM EDT Gender IdentityNot on fileSexual OrientationNot on file Plan of Treatment Not on file
--- OUTSIDE RECORDS SUMMARY | 2025-04-21 08:14 | XMS_ITS | Clinical Summary ---
Author Organization [facility] Address [address] [place] [address] Care Team Providers Care Chronic Specialist Name Role Phone Andrae Bojorquez Primary Care Provider [phone] Encounters DateTypeDepartmentCare OwwsYsqhovbdtna65/17/2025Telephone [facility] [address] [facility] [address] Angela Bergeron MA from Last 3 Months Social History Tobacco UseTypesPacks/DayYears UsedDateSmoking Tobacco: Never Assessed CommentsUnknownSex and Gender InformationValueDate RecordedSex Assigned at Not on fileLegal YtzJsldcz52/27/2024 9:17 AM EDTGender IdentityNot on fileSexual OrientationNot on file Plan of Treatment Health MaintenanceDue DateLast DoneCommentsPneumococcal Vaccine: 65+ Years (2 of 2 - PCV20 or PCV21)/03/2021, 11/17/2015, 03/10/2008COVID-19 Vaccine ( season)/02/2024, 02/08/2023, 03/24/2022, Additional history existsInfluenza Vaccine (#1)/, 04/10/2023, 03/15/2022, Additional history exists Insurance Care Teams Team MemberRelationshipSpecialtyStart DateEnd Date Andrae Bojorquez DO PCP - GeneralInternal Xdsfkjuc22/10/24
--- OUTSIDE RECORDS SUMMARY | 2025-04-21 08:14 | XMS_ITS | Encounter Summary ---
Author Organization [facility] Address [address] [place] [address] Care Team Providers Care Cotton Sampler Name Role Phone Andrae Bojorquez DO Primary Care Provider [phone] Encounter Details DateTypeDepartmentCare Team (Latest Contact Info)Fejlnimjrhy03/17/2025Telephone [facility] [address] [place] [address] Angela Bergeron MA Social History Tobacco UseTypesPacks/DayYears UsedDateSmoking Tobacco: Never Assessed CommentsUnknownSex and Gender InformationValueDate RecordedSex Assigned at Not on fileLegal OoxUwxgov37/27/2024 9:17 AM EDTGender IdentityNot on fileSexual OrientationNot on filedocumented as of this encounter Miscellaneous Notes * Telephone Encounter - Angela Bergeron MA - 04/07/2025 4:15 PM EST Patient's daughter, Radha called stating that her mom's left hearing aid is not working. I explainedthat often the problem is wax in the filter. If this does not work the aid should be dropped off inthe [facility] office for us to assess the problem. documented in this encounter Plan of Treatment Not on file documented as of this encounter Visit Diagnoses Not on filedocumented in this encounter Care Teams Team MemberRelationshipSpecialtyStart DateEnd Date Andrae Bojorquez DO PCP - GeneralInternal Yhuazgkr18/10/24documented as of this encounter
--- OUTSIDE RECORDS SUMMARY | 2025-04-21 08:14 | XMS_ITS ---
Author Organization [facility] Address [address] [place], [place] [id number] Care Team Providers Care Cognos Architect Name Role Phone Andrae Bojorquez DO Primary Care Provider [phone] Active Problems ProblemNoted DateDiagnosed DateTobacco abuse12/16/2013HypertensionBreast cancer Current Treatment and Therapy Plans No current plan information found. Past Treatment and Therapy Plans Plan NameStart DateDiscontinue DateTreatment MedicationsDiscontinue ReasonPlan ProviderCyclesCENTRAL LINE FLUSH - Weekly x 24 weeks10/01/2012No medications scheduled.Treatment Bishop Chapa P1 of 1 cycle startedPlan NameStart DateDiscontinue DateTreatment MedicationsDiscontinue ReasonPlan ProviderCyclesAC DOSE DENSE Q14D THEN PACLITAXEL Q14D06/04/2012* cyclophosphamide iv piggyback (CYTOXAN) * DOXOrubicin (ADRIAMYCIN) * fosaprepitant iv piggyback 150 mg in NaCl 0.9% 250 mL (EMEND) * PACLitaxel iv piggyback (TAXOL) * palonosetron (ALOXI) * pegfilgrastim (NEULASTA) Treatment Bishop Chapa P8 of 8 cycles started Lifetime Dose Tracking * ChemicalLifetime DoseAutomatic EntryManual Nkxqietqpixulwub851.341 mg/m2 (432 mg)239.341 mg/m2 (432 mg)0 mg/m2 (0 mg)
[2025-04-21 09:00] LABS: Microalbum Creatinine Ratio Ur 85.7 mg/g (0.0-29.9)
[2025-04-21 09:24] LABS: Hematocrit 50.0 % (36.0-48.0); Hemoglobin 16.2 g/dL (12.0-16.0); Immature Granulocytes Abs Auto 0.02 10^3/uL (0.00-0.03); Immature Granulocytes Pct Auto 0.3 % (0.0-0.5); Lymphocytes Absolute Auto 1.2 10^3/uL (1.2-3.8); Mean Corpuscular HGB Conc 32.4 g/dL (29.9-35.2); Mean Corpuscular Hemoglobin 29.5 pg (26.7-34.0); Mean Corpuscular Volume 91.1 fL (81.0-99.0); Platelet Count 415 10^3/uL (150-450); Red Blood Count 5.49 10^6/uL (4.20-5.40); White Blood Count 7.8 10^3/uL (4.0-11.0)
[2025-04-21 09:29] LABS: Alanine Aminotransferase 15 U/L (14-59); Alkaline Phosphatase 146 U/L (46-116); Anion Gap 11.6; Aspartate Amino Transferase 13 U/L (15-37); Blood Urea Nitrogen 14.0 mg/dL (7.0-18.0); Calcium 9.3 mg/dL (8.5-10.1); Carbon Dioxide 30.4 mmol/L (21.0-32.0); Chloride 105 mmol/L (98-107); Estimated GFR (African America 46 (>=60 mL/min/1.73m^2); Estimated GFR (Non-African Ame 38 (>=60 mL/min/1.73m^2); Glucose 110 mg/dL (74-106); Potassium 4.0 mmol/L (3.5-5.1); Sodium 143 mmol/L (136-145)
[2025-04-21 09:30] LABS: Albumin Globulin Ratio 0.9; Albumin Level 3.6 g/dL (3.4-5.0); Cholesterol 248 mg/dL (<=200); Globulin 3.9 g/dL; HDL Cholesterol 58 mg/dL (40-60); TSH W/ REFLEX FT4 0.278 uIU/mL (0.358-3.740); Total Protein 7.5 g/dL (6.4-8.2); Triglycerides 210 mg/dL (<=150); VLDL CHOLESTEROL 42.0 mg/dL
== END 2025-04-21 08:09 | disposition home or self-care (01) ==
LOC: LAB 08:11
PROVIDERS: PCP Internal Medicine; Visit Provider Internal Medicine
DX: E78.00 Pure hypercholesterolemia, unspecified (principal); I10 Essential (primary) hypertension; E04.1 Nontoxic single thyroid nodule; I67.2 Cerebral atherosclerosis; I48.19 Other persistent atrial fibrillation; R79.89 Other specified abnormal findings of blood chemistry; E05.90 Thyrotoxicosis, unspecified without thyrotoxic crisis or storm
CPT/HCPCS: 36415; 80053; 80061; 82043; 82570; 84439; 84443; 85025

== ENCOUNTER 2025-05-16 10:07 | Emergency (ER) | payer MEDICARE, SELFPAY ==
[2025-05-16 10:12] VITALS: BP 134/73; PULSE 70; TEMP 36.6; O2SAT 98
--- NOTE | 2025-05-16 10:25 | XR_ITS ---
The [address] [address] Patient Name: SHARON MCKEON MRN: [id number] date: 1940 Sex: F Assigned Patient Location: ED.MAIN Current Patient Location: ED.MAIN Accession/Order Number: [id number] Exam Date: 05/16/2025 10:35 Report Date: 05/16/2025 11:17 At the request of: NORI PATEL DO Procedure: XR hip LT min 2V CLINICAL DATA: Left back and hip pain. Fall 3 days ago. LUMBAR SPINE - 2 views COMPARISON: CT abdomen 09/02/[address] chest 04/28/2023 AP and lateral views were obtained. There is osteopenia. Dextroscoliotic curvature is seen. No definite acute lumbar compression fractures or displacement are noted. The T11 wedge deformity was not present in 2022. There is multilevel disc space narrowing. Endplate spurring and facet hypertrophy are also identified. The SI joints are intact. There is atherosclerotic plaque involving the aorta and its branches. XR/XR hip LT min 2V IMPRESSION: OSTEOPENIA, SCOLIOSIS AND DEGENERATIVE CHANGES. T11 COMPRESSION FRACTURE, NOT PRESENT IN 2022. CORRELATION WITH SITE OF PATIENT'S PAIN IS RECOMMENDED. LEFT HIP - 2 views COMPARISON: CT 09/02/2022 AP and frog-lateral views of the left hip were obtained. Bony structures are osteopenic. No acute fracture or dislocation is identified. There is axial narrowing of the hip joint space. Minor marginal spurring is seen. No soft tissue abnormalities are present. Atherosclerotic disease is visualized in the iiuxc-mo-fsqs. IMPRESSION: OSTEOPENIA AND MILD DEGENERATIVE CHANGE. NO ACUTE BONY FINDINGS. Impression dictated by: Ayana Barber M.D. 05/16/2025 11:17 AM Dictation Location: [facility] Electronically authenticated by: [id number] Y Date: 05/16/2025 11:17
--- NOTE | 2025-05-16 10:25 | XR_ITS ---
The [address] [address] Patient Name: SHARON MCKEON MRN: [id number] date: 1940 Sex: F Assigned Patient Location: ED.MAIN Current Patient Location: ED.MAIN Accession/Order Number: [id number] Exam Date: 05/16/2025 10:35 Report Date: 05/16/2025 11:17 At the request of: NORI PATEL DO Procedure: XR hip LT min 2V CLINICAL DATA: Left back and hip pain. Fall 3 days ago. LUMBAR SPINE - 2 views COMPARISON: CT abdomen 09/02/[address] chest 04/28/2023 AP and lateral views were obtained. There is osteopenia. Dextroscoliotic curvature is seen. No definite acute lumbar compression fractures or displacement are noted. The T11 wedge deformity was not present in 2022. There is multilevel disc space narrowing. Endplate spurring and facet hypertrophy are also identified. The SI joints are intact. There is atherosclerotic plaque involving the aorta and its branches. XR/XR lumbar spine 2-3V IMPRESSION: OSTEOPENIA, SCOLIOSIS AND DEGENERATIVE CHANGES. T11 COMPRESSION FRACTURE, NOT PRESENT IN 2022. CORRELATION WITH SITE OF PATIENT'S PAIN IS RECOMMENDED. LEFT HIP - 2 views COMPARISON: CT 09/02/2022 AP and frog-lateral views of the left hip were obtained. Bony structures are osteopenic. No acute fracture or dislocation is identified. There is axial narrowing of the hip joint space. Minor marginal spurring is seen. No soft tissue abnormalities are present. Atherosclerotic disease is visualized in the cijnx-gk-pgnm. IMPRESSION: OSTEOPENIA AND MILD DEGENERATIVE CHANGE. NO ACUTE BONY FINDINGS. Impression dictated by: Ayana Barber M.D. 05/16/2025 11:17 AM Dictation Location: [facility] Electronically authenticated by: [id number] Y Date: 05/16/2025 11:17
--- OUTSIDE RECORDS SUMMARY | 2025-05-16 10:31 | XMS_ITS | CCD ---
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 [facility] [address] [place] [address] Dr. Conrado Nino #0.03 10e3/ulNormal0.00-0.03The [facility] CenterComment on above:Performed By: #### PT, PTT #### [facility] [address] [place] [address] Dr. Conrado Nino %0.4 %Normal0.0-0.5The [facility] CenterComment on above: Performed By: #### PT, PTT #### [facility] [address] [place] [address] Dr. Conrado Patrick #1.7 103/ulNormal1.2-3.8The [facility] CenterComment on above:Performed By: #### PT, PTT #### [facility] [address] [place] [address] Dr. Conrado Mathewhocytes/100 WBC (Bld)20.4 %Critically low20.5-60.0[facility] on above:Performed By: #### PT, PTT #### [facility] [address] [place] [address] Dr. Conrado ShortUAL DIFF REQNONormalThe [facility] CenterComment on above: Performed By: #### PT, PTT #### [facility] [address] [place] [address] Dr. Conrado Gomez (RBC) [Entitic mass]29.3 ajVgrstl52.7-34.0The [facility] CenterComment on above:Performed By: #### PT, PTT #### [facility] [address] [place] [address] Dr. Conrado Gomez (RBC) [Mass/Vol]33.1 g/nHZmulhy33.9-35.2The [facility] CenterComment on above:Performed By: #### PT, PTT #### [facility] [address] [place] [address] Dr. Conrado GomezV (RBC) [Entitic vol]88.6 zBTduawd86.0-99.0The [facility] CenterComment on above:Performed By: #### PT, PTT #### [facility] [address] [place] [address] Dr. Conrado Avery #0.7 103/ulNormal0.3-0.8The [facility] CenterComment on above:Performed By: #### PT, PTT #### [facility] [address] [place] [address] Dr. Conrado Merrillocytes/100 WBC (Bld)9.1 %Normal1.7-12.0The [facility] on above:Performed By: #### PT, PTT #### [facility] [address] [place] [address] Dr. Conrado Machuca #5.5 103/ulNormal1.4-6.5The [facility] CenterComment on above:Performed By: #### PT, PTT #### [facility] [address] [place] [address] Dr. Conrado Foremanutrophils/100 WBC (Bld)67.4 %Ogwknp36.0-75.0The [facility] CenterComment on above:Performed By: #### PT, PTT #### [facility] [address] [place] [address] Dr. Conrado Wilsonlet mean volume (Bld) [Entitic vol]10.0 fLNormal9.5-13.5The [facility] CenterComment on above:Performed By: #### PT, PTT #### [facility] [address] [place] [address] Dr. Conrado Jewell409 103/nxMglkqk261-517Ynk [facility] CenterComment on above: Performed By: #### PT, PTT #### [facility] [address] [place] [address] Dr. Conrado DonaldRBC5.52 106/ulCritically high4.20-5.40[facility] Comment on above:Performed By: #### PT, PTT #### [facility] [address] [address] [address] Conrado DonaldWBC8.1 103/ulNormal4.0-11.0The [facility] CenterComment on above: Performed By: #### PT, PTT #### [facility] [address] [address] [address] Conrado DonaldLIPID PROFILEon 12-63-5756RJAS-HDL RATIO NORMSEE [facility] HospitalComment on above:Result Comment: 3.3 - 4.4 LOW RISK 4.4 - 7.1 AVERAGE RISK 7.1 - 11.0 MODERATE RISK >11.0 HIGH RISKPerformed By: #### PT, PTT #### [facility] [address] [address] [address] Conrado DonaldCholesterol [Mass/Vol]219 mg/dLCritically high<=200The [facility] CenterComment on above:Performed By: #### PT, PTT #### [facility] [address] [address] [address] Conrado Murrayesterol in HDL [Mass/Vol]57 mg/dEUtxuhq69-10Pyk [facility] CenterComment on above:Performed By: #### PT, PTT #### [facility] [address] [address] [address] Conrado DonaldCholesterol in LDL [Mass/Vol]119.6 mg/dLAkron Children's HospitalComment on above:Performed By: #### PT, PTT #### [facility] [address] [address] [address] Conrado Murrayestersadie.total/Cholesterol in HDL [Mass ratio]3.8 {ratio} NormalThe [facility] CenterComcorewell health greenville hospital on above:Performed By: #### PT, PTT #### [facility] [address] [address] [address] Conrado Hall NORMAL> or = 60 mg/dl - LOW CARDIOVASCULAR RISK <40 mg/dl - HIGH CARDIOVASCULAR RISKAkron Children's HospitalComment on above:Performed By: #### PT, PTT #### [facility] [address] [address] [address] Conrado DonaldLDL CALC NORMALSEE BELOWAkron Children's HospitalComment on above:Result Comment: <100 mg/dl OPTIMAL 100 - 129 mg/dl NEAR OR ABOVE OPTIMAL 130 - 159 mg/dl BORDERLINE HIGH 160 - 189 mg/dl HIGH >190 mg/dl VERY HIGH Performed By: #### PT, PTT #### [facility] [address] [address] [address] Conrado DonaldTriglyceride [Mass/Vol]212 mg/dLCritically high<=150The [facility] on above:Performed By: #### PT, PTT #### [facility] [address] [address] [address] Conrado DonaldVLDL CALC42.4 mg/dLAkron Children's HospitalComment on above: Performed By: #### PT, PTT #### [facility] [address] [address] [address] Conrado DonaldMG MAMM SCREEN LT 3D CADon [id number] MAMM SCREEN LT 3D CAD Patient: SHARON SHELTON Exam Date: 05/09/2022 : 1940 Gender:F Ordering : DR ANDRAE BOJORQUEZ D.O. Admission #: [id number] Family : Order #: [id number] CLICK HERE TO VIEW EXAM RADIOLOGY REPORT [...] with chemotherapy Family Cancers None LOCATION: The [facility] BREAST COMPOSITION: Heterogeneously dense,which may obscure [...] by: Surya Lomeli M.D. on 05/09/2022 at 14:16Ak[facility] Children's HospitalPROF CHEM 8 (BAS METB)on 05-84-5244Tltxd gap [Moles/Vol]9.8 mmol/LNormal The [facility] CenterComment on above:Performed By: #### PT, PTT #### [facility] [address] [place] [address] Dr. Conrado DonaldCalcium [Mass/Vol]10.0 mg/dLNormal8.5-10.1[facility] Comment on above:Performed By: #### PT, PTT #### [facility] [address] [place] [address] Dr. Conrado DonaldChloride [Moles/Vol]105 mmol/VPcriue58-521EwbMercy Health St. [facility] Comment on above:Performed By: #### PT, PTT #### [facility] [address] [place] [address] Dr. Conrado DonaldCO2 [Moles/Vol]32.7 mmol/LCritically high21.0-32.0[facility] Medical CenterComment on above:Performed By: #### PT, PTT #### [facility] [address] [place] [address] Dr. Conrado DonaldCreatinine [Mass/Vol]1.05 mg/dLCritically high0.55-1.02[facility] Medical CenterComment on above:Performed By: #### PT, PTT #### [facility] [address] [place] [address] Dr. Conrado MorenoGFR-AF ARMENIAN>60Normal>=60The [facility] CenterComment on above:Performed By: #### PT, PTT #### [facility] [address] [place] [address] Dr. Conrado MorenoGFR-NON AF VFBXNTLB93 mL/min/1.87t5Fepkyebmqq low>=60The [facility] CenterComment on above:Performed By: #### PT, PTT #### [facility] [address] [address] [address] Conrado DonaldGlucose [Mass/Vol]91 mg/pKOxixud06-696Qas [facility] Comment on above:Performed By: #### PT, PTT #### [facility] [address] [address] [address] Conrado DonaldPotassium [Moles/Vol]4.5 mmol/LNormal3.5-5.1[facility] Comment on above:Performed By: #### PT, PTT #### [facility] [address] [address] [address] Conrado DonaldSodium [Moles/Vol]143 mmol/FUdspst451-771Omx [facility] Comment on above:Performed By: #### PT, PTT #### [facility] [address] [address] [address] Conrado DonaldUrea nitrogen [Mass/Vol]26.0 mg/dLCritically high7.0-18.0The [facility] CenterComment on above:Performed By: #### PT, PTT #### [facility] [address] [place] [address] Dr. Conrado Young nitrogen/Creatinine [Mass ratio]24.8 mg/mgNormalThe [facility] CenterComment on above:Performed By: #### PT, PTT #### [facility] [address] [place] [address] Dr. Conrado DonaldUS THYROID FN ASP BXon [id number] THYROID FN ASP BX Begin Addendum #1 COLLECTED DATE/TIME: 01/20/2022 12:18 EDT Final Diagnosis Report for THE [place], [place] (A/B) RIGHT INFERIOR LOBE THYROID NODULE, [...] aspiration (FNA). 2. Pathology results are pending.NormalThe [facility] Vital Signs Date TimeVital SignValuePerforming KivyiwngwHxayaesk60-07-4494 11:34-0400Body yiixrd297.64 cmBenjamin Ball DO Work Phone: [phone]08-14-2025 11:34-0400 Body mass index (BMI) [Ratio]21.7 kg/f0Gdykbeox Ball DO Work Phone: [phone] [place], [place] 3605408-14-2025 11:34-0400 Body afflyz50.23 kgBenjamin Ball DO Work Phone: [phone] [place], [place] 3605408-14-2025 11:34-0400 Diastolic blood pvbnrbko23 mm[Hg]Andrae Ball DO Work Phone: [phone] [place], [place] 3605408-14-2025 11:34-0400 Heart rate68 /minBenjamin Ball DO Work Phone: [phone] [place], [place] 3605408-14-2025 11:34-0400 Respiratory rate12 /minBenjamin Ball DO Work Phone: [phone] [place], [place] 3605408-14-2025 11:34-0400 Systolic blood bqlnujeg244 mm[Hg]Andrae Ball DO Work Phone: [phone] [place], [place] 3605407-29-2025 09:17-0400 Body risdee676.64 cmBenjamin Ball DO Work Phone: [phone] [place], [place] 3605407-29-2025 09:17-0400 Body mass index (BMI) [Ratio]21.8 kg/x9Lheuwowk Ball DO Work Phone: [phone]07-29-2025 09:17-0400 Body svksod15.34 kgBenjamin Ball DO Work Phone: [phone] [place], [place] 3605407-29-2025 09:17-0400 Diastolic blood yxgctqnb69 mm[Hg]Andrae Ball DO Work Phone: [phone])[address] [place], [place] 3605407-29-2025 09:17-0400 Heart rate73 /minBenjamin Ball DO Work Phone: [phone])[address] [place], [place] 3605407-29-2025 09:17-0400 Respiratory rate12 /minBenjamin Ball DO Work Phone: [phone])[address] [place], [place] 3605407-29-2025 09:17-0400 Systolic blood mavbqvvq795 mm[Hg]Andrae Ball DO Work Phone: [phone])[address] [place], [place] 3605406-23-2025 10:44-0400 Body jmthoh160.64 cmBenjamin Ball DO Work Phone: [phone])[address] [place], [place] 3605406-23-2025 10:44-0400 Body mass index (BMI) [Ratio]22.4 kg/z4Pbkjdwsu Ball DO Work Phone: [phone])[address] [place], [place] 3605406-23-2025 10:44-0400 Body kwgvao25.16 kgBenjamin Ball DO Work Phone: [phone] [place], [place] 3605406-23-2025 10:44-0400 Diastolic blood xgomjwga90 mm[Hg]Andrae Ball DO Work Phone: [phone])[address] [place], [place] 3605406-23-2025 10:44-0400 Heart rate62 /minBenjamin Ball DO Work Phone: [phone])[facility] [place], [place] 3718606-23-2025 10:44-0400 Respiratory rate12 /minBenjamin Ball DO Work Phone: [phone])[facility] [place], [place] 3718606-23-2025 10:44-0400 Systolic blood wpdkwmeq644 mm[Hg]Andrae Bojorquez DO Work Phone: [facility]04-18-2025 11:02-0400 Body kmlped296.64 cmAdena [facility]04-18-2025 11:02-0400Body mass index (BMI) [Ratio]21.8 kg/q2JurnbcxjvAdena [facility]ayette Medical Center04-18-2025 11:02-0400Body ulyweo89.34 kgAdena [facility] Center04-18-2025 11:02-0400Diastolic blood abdxceig09 mm[Hg][facility] 09-06-2024 11:02-0400Heart rate76 /[facility] 09-06-2024 11:02-0400Respiratory rate12 /[facility] 09-06-2024 11:02-0400Systolic blood dovhodus546 mm[Hg][facility]08-07-2024 11:53-0400Body .64 cmAden[facility]08-07-2024 11:53-0400Body mass index (BMI) [Ratio]22.1 kg/r8IjasirirmAdena [facility] Medical Center08-07-2024 11:53-0400Body oxdpek31.36 kgAdena [facility] Center08-07-2024 11:53-0400Diastolic blood mm[Hg] [facility]08-07-2024 11:53-0400Heart rate72 /[facility]08-07-2024 11:53-0400Respiratory rate12 /[facility]08-07-2024 11:53-0400Systolic blood jdpoecdw888 mm[Hg] [facility]07-13-2024 11:59-0400Diastolic blood jghdwarh09 mm[Hg][facility]07-13-2024 11:59-0400Heart rate63 /min [facility]07-13-2024 11:59-0400Respiratory rate16 /min [facility]07-13-2024 11:59-8477SkV1% (BldA) [Mass fraction]94 %[facility]07-13-2024 11:59-0400Systolic blood mm[Hg][facility]03-20-2024 10:35-0400 Body vduylv918.64 cmAdena [facility] Center03-20-2024 10:35-0400Body mass index (BMI) [Ratio]22.9 kg/m5OddzuflyyAdena [facility]ayette Medical Center03-20-2024 10:35-0400Body .52 kgAdena [facility] Center03-20-2024 10:35-0400Diastolic blood cwmacntt52 mm[Hg][facility] 08-09-2023 10:35-0400Heart rate69 /[facility] 08-09-2023 10:35-0400Respiratory rate16 /[facility] 08-09-2023 10:35-0400Systolic blood nkaaoepy640 mm[Hg][facility]03-04-2024 16:03-0500Body .64 cmAdena [facility] Center03-04-2024 16:03-0500Body mass index (BMI) [Ratio]23.1 kg/k2GxcnpcedhAdena Fayette Medical Center03-04-2024 16:03-0500Body fwisdi50.97 kgAdena [facility] Medical Center03-04-2024 16:03-0500Diastolic blood mm[Hg] [facility]03-04-2024 16:03-0500Heart rate74 /[facility]03-04-2024 16:03-0500Respiratory rate12 /[facility]03-04-2024 16:03-0500Systolic blood yykoymbp211 mm[Hg] [facility]11-20-2023 10:30-0500Body tuherx162.64 cm Andrae Ball Other [employer] Other 771322-02-4487 10:30-0500Body mass index (BMI) [Ratio] 23.34 kg/v7Nygzuoob Ball Other [employer] Other 11-20-2023 10:30-0500Body jzavbf88.59 kgBenjamin Ball Other [employer] Other 11-20-2023 10:30-0500Diastolic blood zdetktle97 mm[Hg] Andrae Ball Other [employer] Other 11-20-2023 10:30-0500Respiratory rate12 /minBenjamin Ball Other [employer] Other 11-20-2023 10:30-0500Systolic blood yeshrquj473 mm[Hg] Andrae Ball Other [employer] Other 08-18-2023 10:00-0400Body ycvtjq314.64 cmBenjamin Ball Other [employer] Other 08-18-2023 10:00-0400Body mass index (BMI) [Ratio] 21.63 kg/z2Kkqjlqjp Ball Other [employer] Other 08-18-2023 10:00-0400Body jsqbup41.78 kgBenjamin Ball Other [employer] Other 08-18-2023 10:00-0400Diastolic blood dqevfhka10 mm[Hg] Andrae Ball Other [employer] Other 08-18-2023 10:00-0400Respiratory rate12 /minBenjamin Ball Other [employer] Other 08-18-2023 10:00-0400Systolic blood oterwuyf313 mm[Hg] Andrae Ball Other [employer] Other 04-21-2023 11:30-0400Body hjmabz079.64 cmBenjamin Ball Other [employer] Other 04-21-2023 11:30-0400Body mass index (BMI) [Ratio] 24.56 kg/z9Pfvkkxah Ball Other [employer] Other 04-21-2023 11:30-0400Body .04 kgBenjamin Ball Other [employer] Other 04-21-2023 11:30-0400Diastolic blood ijcetmzd05 mm[Hg] Andrae Ball Other [employer] Other 04-21-2023 11:30-0400Respiratory rate12 /minBenjamin Ball Other [employer] Other 04-21-2023 11:30-0400Systolic blood ctaneuwh871 mm[Hg] Andrae Ball Other [employer] Other Encounters Encounter DateEncounter TypeCare ProviderFacilityStart: 01-02-2025 End: 70-87-3953lrhnbzbffsLmkjzbck Ball DO Work Phone: [facility] Work Phone: Start: 01-02-2025 End: 51-11-0763Ffqiruq encounter procedureBenjamin Ball DO-[facility] Work Phone: Start: 12-17-2024 End: 68-71-4497pkatduwbznWfdameju Ball DO Work Phone: [facility] Work Phone: Start: 12-17-2024 End: 08-74-7626Nsekszv encounter procedureBenjamin Ball DO-[facility] Work Phone: Start: 11-11-2024 End: 33-13-2065Yrzfscp encounter procedureBenmalini Bojorquez DO-[facility] Work Phone: Start: 09-06-2024 End: 80-78-1057ncmkpqbzsmKhpajmoxrOhioHealth [facility] Work Phone: Start: 09-06-2024 End: 29-01-5875Oghmuyx encounter procedureFirinova [facility] Work Phone: Start: 07-10-2024 End: 35-42-2647Kcphgvc encounter procedureNoms Sh Aud Audiology Aid - Angela DodrillNOMS CI AUDComment on above:Sensorineural hearing loss (SNHL) of both ears (Primary Dx)Start: 07-10-2024 End: 66-54-4837dkkfkgiferOAMUIZL MCGILLNot AvailableStart: 06-12-2024 End: 17-42-9613Twrvzeu encounter procedureNoms Aud Audiology Aid - Angela DodrillNOMS CI AUDComment on above:Sensorineural hearing loss (SNHL) of both earsStart: 06-12-2024 End: 02-33-0430fyfsqtiqrzFDOIOAG MCGILLNot AvailableStart: 04-30-2024 End: 75-28-2232Lyucyfwt SupportDeborah A Cat CCC-A Work Phone: noms AUDComment on above:Sensorineural hearing loss (SNHL) of both ears (Primary Dx)Start: 04-30-2024 End: 64-01-8052nppcvhizjfBWFSCKR A MCGILLNot AvailableStart: 04-30-2024 End: 08-16-3817Oniwvd flowsheetDeborah A Cat CCC-A Work Phone: noMS AUDStart: 04-30-2024 End: 50-35-1449Xtdzqi flowsheetDeborah A Cat CCC-A Work Phone: noms AUDStart: 91-38-9910Ebbyhgx encounter procedureFirelands Regional Medical Center South Campustart: 12-27-2023 End: 01-44-8206vyzxmloodpQhkmuurjmOhioHealth [facility] Hospital Work Phone: Start: 12-27-2023 End: 09-32-4563[place] encounter procedureGopalinova [facility] Work Phone: Start: 12-02-2023 End: 24-37-9156zgrxqwpmbfNughsavcvCherrington Hospital Work Phone: Start: 12-02-2023 End: 96-12-2937Jlquxmc encounter procedureJonas Physician Group-[facility] Work Phone: Start: 08-09-2023 End: 26-25-0240kjjahztyfdQwnehkyrvCherrington Hospital Work Phone: Start: 08-09-2023 End: 00-15-4757Aauaeqo encounter procedureJonas Physician Group-[facility] Work Phone: Start: 07-24-2023 End: 98-53-3219Enfmgvu encounter procedureGopalinova [facility] Work Phone: Start: 05-11-2023 End: 54-07-6190wvypzvfzcaKsbmbmfn Ball Other [employer] Other Start: 40-11-6445Fmzqwrnbh encounterBenjamin BallFPG [facility] Medical ClinicStart: 05-01-2023 End: 70-47-5267jyuorbyeqkVxcjfjdh Ball Other [employer] Other Start: 13-78-1405Dfykzjadb encounterBenjamin BallFPG [facility] ClinicStart: 04-30-2023 End: 20-77-2261isuubpafvsIiuntthf Ball Other [employer] Other Start: 27-91-5497Xyljjosoy encounterBenjamin BallFPG [facility] ClinicStart: 04-28-2023 End: 10-62-0169zwgjsjisuuDzmxyfcd Ball Other [employer] Other Start: 69-27-2762Fnnqhgjoq encounterBenjamin BallFPG [facility] ClinicStart: 04-26-2023 End: 70-82-4671btxjfcbcfrYsxbrzrh Ball Other [employer] Other Start: 32-13-1003Zsdhkpnhs encounterBenjamin BallFPG [facility] ClinicStart: 04-25-2023 End: 92-53-6165ixqbwjtijeOlzxmwmu Ball Other [employer] Other Start: 82-98-6083Uuklufesg encounterBenjamin BallFPG [facility] ClinicStart: 04-10-2023 End: 22-86-0539uwmosgkydsAitokjad Ball Other [employer] Other Start: 06-49-6644Zwteatf encounter procedureBenjamin BallFPG [facility] ClinicStart: 02-22-2023 End: 24-96-9214dmjfjldfdqMwkhhhvx Ball Other [employer] Other Start: 43-56-2593Ebihrxctu encounterBenjamin BallFPG [facility] ClinicStart: 01-19-2023 End: 29-82-3035wwpcmlxwehZxjhuhwv Ball Other [employer] Other Start: 74-26-3512Auiaxptnl encounterBenjamin BallFPG [facility] ClinicStart: 01-09-2023 End: 91-15-2588yhoietiyroRkpmcxvz Ball Other [employer] Other Start: 56-82-2050Jihizchkr encounterBenjamin BallFPG [facility] ClinicStart: 01-06-2023 End: 77-59-4789qqllpbbrkoPfqtgsum Ball Other [employer] Other Start: 02-93-5497Lobvdk outpatient visit 25 minutes [facility] ClinicStart: 09-[facility]2022 End: 48-07-8024kzbxwbycnzZnlebrvw Ball Other [employer] Other Start: 82-17-3393Pntzakuok encounterBenmalini SepulvedaG Ball Medical ClinicStart: 09-09-2022 End: 81-75-4956adcghrvdkyAtbgkiad Ball Other [employer] Other Start: 39-51-5422Hiaszo outpatient visit 25 minutes [facility] ClinicStart: 09-02-2022 End: 65-49-2949pbyzbilbbsSS ANDRAE BALLFacility:S7Cxfcy: 08-10-2022 End: 47-62-2201oligsgfpiuHI ANDRAE BALLFacility:Q9Vonry: 05-09-2022 End: 70-79-9217rgkdidauvsAO ANDRAE BALLFacility:N5Wzzlq: 01-20-2022 End: 43-09-5212pofuwbgkimEZ ANDRAE BALLFacility:H1 Procedures DateProcedureProcedure DetailPerforming ClinicianStart: 85-44-4306GPURETPF FUNCTION TESTSDesocorro Sarmiento [facility] Work Phone: depression screeningBeisidro Ball Other Plan of Treatment DateCare ActivityDetailAuthorStart: 07-10-2024 End: 64-47-7186Dcgaqyl encounter veytuhqpe70/19/2025 11:00 AM EST Office Visit [facility] [address] [place] [address] DGMM CI AUDStart: 06-12-2024 End: 43-12-9831Uraijac encounter pksvmodpa66/22/2025 10:00 AM EST Office Visit [facility] [address] [place] [address] [phone] CI AUDStart: 04-30-2024 End: 97-40-0585Juobjxuz Bqallwq4704/30/2024 2:30 PM EST Clinical Support [facility] [address] [facility] [id number] Loyda Shelton, [facility] [address] [facility] [place] [address] ArrivedNOFREEMAN ORTHOPAEDICS & SPORTS MEDICINE AUDComment on above:ArrivedStart: 01-21-2024 Influenza vaccinationInfluenza Vaccine (#1)[facility] HealthcareStart: 03-01-2022 Pneumococcal Vaccine: 65+ Years (2 of 2 - PPSV23 or PCV20)Pneumococcal Vaccine: 65+ Years (2 of 2 - PPSV23 or PCV20)[facility] Immunizations Immunization DateImmunizationNotesCare ZwvbbggaJftgtbtw90-91-2609vbsnmdqbf virus vaccine, unspecified formulationDesocorro Shelton [facility] Work Phone: NOVA Svramrhlbl95-89-4748mxmscvnad virus vaccine, unspecified formulationAdena [facility] Center11-20-2023influenza, high dose seasonal, preservative-freeShernmalini Bojorquez Other [employer] Other [id number] virus vaccine, split virus (incl. purified surface antigen)Andrae Bojorquez Other [employer] Other [id number] virus vaccine, unspecified formulationAdena [facility] Center10-28-2021influenza virus vaccine, split virus (incl. purified surface antigen)Andrae Bojorquez Other [employer] Other [id number] virus vaccine, unspecified formulationA[facility] Center09-18-2020influenza virus vaccine, split virus (incl. purified surface antigen)Andrae Bojorquez Other [employer] Other [id number] virus vaccine, unspecified formulationAdena [facility] Medical Center10-29-2019influenza virus vaccine, split virus (incl. purified surface antigen)Andrae Bojorquez Other [employer] Other [id number] virus vaccine, unspecified formulationA[facility] Center09-10-2018influenza virus vaccine, split virus (incl. purified surface antigen)Andrae Bojorquez Other [employer] Other 09-011932-29-7584pcyvyapla virus vaccine, unspecified formulationAdena [facility] Medical Center10-18-2017influenza virus vaccine, split virus (incl. purified surface antigen)Andrae Bojorquez Other [employer] Other 10119565-20-1788kzveaeotx virus vaccine, unspecified formulationA[facility] Center09-21-2016influenza virus vaccine, split virus (incl. purified surface antigen)Andrae Bojorquez Other [employer] Other [id number] virus vaccine, unspecified formulationA[facility] Center06-28-2016pneumococcal conjugate vaccine, 13 valentBenmalini Bojorquez Other [facility]09-17-2015influenza virus vaccine, split virus (incl. purified surface antigen)Andrae Bojorquez Other [employer] Other 09-285935-94-5048jeyevtihj virus vaccine, unspecified formulationA[facility] Center09-19-2013tetanus and diphtheria toxoids, adsorbed, preservative free, for adult use (5 Lf of tetanus toxoid and 2 Lf of diphtheria toxoid)Andrae Bojorquez Other [facility] Payers DatePayer CategoryPayerPolicy [id number] (Managed Care) [id number] [id number] [id number] 2..840.1.384707.3.57[id number] [id number] [id number] [id number] [id number] Social History DateTypeDetailFacilitySex Assigned At BirthNoUnilife Corporation Other Start: 75-04-4604Eagslbc smoking status NHISEx-smoker (finding)[facility] Campustart: 72-35-2933Gxt Assigned At FemaleAdena Fayette Medical CenterTobacco smoking status NHISTobacco smoking consumption unknownNOVA HealthcareStart: 22-48-1258Kpf assigned at Not on fileNOVA HealthcareStart: 76-20-5408JzcXjtzrv (finding)[facility] Clinical Notes 09-09-2022 to 11-11-2024 Note Date & FvjrNwrlWslumgbv45-88-2086 Evaluation note* Diagnosis Onset Date Resolution Status Admit Date Essential hypertension acuteJune 2024 10:37amExcessive cerumen in both ear canalsacuteJun2024 10:37amSensorineural hearing loss (SNHL) of both earsacuteJune 2024 10:37am [facility] Work Phone: [phone] Evaluation note* Diagnosis Onset Date Resolution Status [...] hyperthyroidism acuteAugust 2024 10:56amThyroid noduleacuteAugust 2024 10:56am [facility] Work Phone: 1(818) 464-303402-19-2025 History of Present illness Narrative* Angela Dodrill, [...] 07/10/2024 2:51 PM EST documented in this encounterNorthwest Medical CenterKktvmbxxbk23-18-2388 History of Present illness Narrative* Angela Bergeron MA - 06/12/2024 10:00 AM EST Patient was in today to be fit with [employer] 513 ALDO LI T hearing aids which she obtained using her [employer]/[facility] benefit. Patient is an experienced hearing aid wearer and was accompanied by her daughter to today's appointment. Patient aids were coupled to 2M receivers with XS Closed domes.Patient had no trouble with insertion. This was the first set of rechargeable hearing aids so we did review and practice putting the aids in the cupola charger insulation. Patient felt the aid was a bit [...] 06/12/2024 11:35 AM EST documented in this [facility]12-10-2024 History of Present illness Narrative* BRET Vega [...] decided to purchase advanced ALDO aids in [employer] and needs 2M receivers. HCS process explained to pt and her daughter. Pt;s daughter given [facility] number for $250 payment. Pt scheduled for HAF in [place] office 06-12-24. documented in this [facility]12-10-2023 Evaluation note* Encounter Date Diagnosis Assessment Notes Treatment Notes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
--- OUTSIDE RECORDS SUMMARY | 2025-05-16 10:32 | XMS_ITS | Clinical Summary ---
Author Organization [facility] Address [address] [place] [address] Phone Care Team Providers Care Reverse Engineer Name Role Phone Unavailable Primary Care Provider Unavailabl e Social History Tobacco UseTypesPacks/DayYears UsedDateSmoking Tobacco: Never Assessed CommentsUnknownSex and Gender InformationValueDate RecordedSex Assigned at Not on fileLegal EquUalnwm81/26/2022 1:59 AM ESTGender IdentityNot on fileSexual OrientationNot on file Plan of Treatment Not on file
--- OUTSIDE RECORDS SUMMARY | 2025-05-16 10:32 | XMS_ITS | Clinical Summary ---
Author Organization [facility] Address [address] [place] [address] Care Team Providers Care Radar Systems Engineer Name Role Phone Andrae Bojorquez DO Primary Care Provider [phone] Encounters DateTypeDepartmentCare KvvfLmypwjsvnig21/17/2025Telephone [facility] [address] [facility] [address] Angela Bergeron MA from Last 3 Months Social History Tobacco UseTypesPacks/DayYears UsedDateSmoking Tobacco: Never Assessed CommentsUnknownSex and Gender InformationValueDate RecordedSex Assigned at Not on fileLegal GgyOdkwhh27/27/2024 9:17 AM EDTGender IdentityNot on fileSexual OrientationNot on file Plan of Treatment Not on file Insurance Care Teams Team MemberRelationshipSpecialtyStart DateEnd Date Andrae Bojorquez DO PCP - GeneralYavapai Regional Medical Centernal Tmzddzje62/10/24
--- OUTSIDE RECORDS SUMMARY | 2025-05-16 10:32 | XMS_ITS | Clinical Summary ---
Author Organization [facility] Address [address] [place] [address] Care Team Providers Care Travel Accommodation Inspector Name Role Phone Unavailable Primary Care Provider Unavailabl e Social History Tobacco UseTypesPacks/DayYears UsedDateSmoking Tobacco: Never AssessedUT Safety & EnvironmentAnswerDate RecordedFear of Current or Ex-PartnerNot on file 07/13/2023Emotionally AbusedNot on file07/13/2023hysically AbusedNot on file 07/13/2023Sexually AbusedNot on file07/13/2023hysically or Sexually AbusedNot on file07/13/2023CommentsUnknownSex and Gender InformationValueDate RecordedSex Assigned at BirthNot on fileLegal PstCximys78/30/2022 12:44 AM EDT Gender IdentityNot on fileSexual OrientationNot on file Plan of Treatment Not on file
--- OUTSIDE RECORDS SUMMARY | 2025-05-16 10:32 | XMS_ITS ---
Author Organization [facility] Address [facility] [id number] Care Team Providers Care Lead Material Handler Name Role Phone Andrae Bojorquez DO Primary Care Provider [phone] Active Problems ProblemNoted DateDiagnosed DateTobacco abuse12/16/2013HypertensionBreast cancer [...] Lifetime Dose Tracking * ChemicalLifetime DoseAutomatic EntryManual Qriupzslawxsnilv550.341 mg/m2 (432 mg)239.341 mg/m2 (432 mg)0 mg/m2 (0 mg)
--- OUTSIDE RECORDS SUMMARY | 2025-05-16 10:32 | XMS_ITS | Clinical Summary ---
Author Organization [facility] Address [address] [place], [place] [address] Care Team Providers Care Slot Tag Inserter Name Role Phone Andrae Bojorquez DO Primary Care Provider [phone] Allergies No known active allergies Medications MedicationSigDispense [...] drink = 0.6 oz pure alcohol)PHQ-2AnswerDate RecordedPHQ-2 opgni276Area Deprivation IndexAnswerDate RecordedNational Score (1-100), lower number is lower riskNot on file04/29/2020State Score (1-10), lower number is lower riskNot on file04/29/2020Data from: https://www.neighborhoodatlas.medicine.[facility].edu/. Last address used for calculationNot on file04/29/2020CommentsNoSex and Gender InformationValueDate RecordedSex Assigned at BirthNot on fileLegal Sex Olvedo1505/17/2012 1:43 PM ESTGender IdentityNot on fileSexual OrientationNot on file Last Filed Vital Signs Vital SignReadingTime TakenCommentsBlood Pogwftoc896/8406 1:44 PM EDT Jwbzr175110/30/2017 1:44 PM PBDWdiyrkesfrr58 ??C (98.6 ??F)10/30/2017 1:44 PM EDT Respiratory Qyas1602 1:44 PM EDTOxygen Rgrbiqckgv54%10/30/2017 1:44 PM EDTInhaled Oxygen Concentration--Vgwmtr03.4 kg (155 lb 3.2 oz)10/30/2017 1:44 PM TUKNgxczw780.2 cm (5' 7.01 )10/30/2017 1:44 PM EDTBody Mass Index24. 1:44 PM EDT Plan of Treatment Health MaintenanceDue DateLast DoneCommentsAnxiety Abdkkcjky59/23/1961Depression Cgmxrmjqx94/23/1961DTaP,Tdap,Td Vaccine (1 - Tdap)2Pneumococcal Vaccine: 50+ (1 of 1 - PCV)1992Shingrix Vaccine (1 of 2)1992Bone Density Dlaaknmun47/23/2008RSV Vaccine (1 - 1-dose 75+ series)2017Diabetes Vfczixiek41, 11/07/2016, 05/09/2016, Additional history exists Advance Directive Mnabibumej08/01/2025Covid-19 Vaccine ( season) 2025Influenza Vaccine (#1)2025 Procedures Procedure NamePriorityDate/TimeAssociated DiagnosisCommentsBASIC METABOLIC PANEL Zywubbv6905/08/2017 11:04 AM EST Malignant neoplasm of right breast in female, estrogen receptor positive, unspecified site of breast (HCC) from Last 3 Months or Most Recently Relevant to Health Maintenance Results * (ABNORMAL) BASIC METABOLIC PNL (05/08/2017 11:04 AM EST)ComponentValueRef RangeTest MethodAnalysis TimePerformed AtPathologist UumbhowjmNfksjeh1619 - 99 mg/dL05/09/2017 5:52 AM [facility] LABORATORYComment: The [place] Diabetes Association (ADA) provides guidance for cutoff [...] Standards of Medical Care in Diabetes 2016, [place] Diabetes Association. Diabetes Care. 2016.39(Suppl 1). IZL140 - 21 mg/dL05/09/2017 5:52 AM [facility] Creatinine0.97(H)0.58 - 0.96 mg/dL05/09/2017 5:52 AM [facility] IPWACSDWPPPeutcg502(H)136 - 144 mmol/L107/10/2016 5:52 AM [facility] LABORATORYPotassium4.23.7 - 5.1 mmol/L107/10/2016 5:52 AM [facility] ASYGTNBTNSTlrpbkwm68732 - 105 mmol/L107/10/2016 5:52 AM [facility] XXSXQXQBOFTC69953 - 30 mmol/L107/10/2016 5:52 AM [facility] LABORATORYAnion Olw514 - 18 mmol/L107/10/2016 5:52 AM [facility] AUJNUKMCNVImavdru28.08.5 - 10.2 mg/dL05/09/2017 5:52 AM [facility] LABORATORYeGFR->6005/09/2017 5:52 AM [facility] LABORATORYeGFR-All Other Races56.05/09/2017 5:52 AM [facility] LABORATORYComment: eGFR (Estimated GFR) Units of [...] TypeResult StatusRegina WAGNER-CLABORATORYFinal ResultPerforming OrganizationAddressCity/State/ZIP CodePhone Number [facility] [address] [place] [address] from Last 3 Months or Most Recently Relevant to Health Maintenance Insurance Care Teams Team MemberRelationshipSpecialtyStart DateEnd Date Andrae Bojorquez DO PCP - GeneralInternal Xkqowxwq25/27/12
--- NOTE | 2025-05-16 11:32 | ED_ITS ---
HPI HPI - General Adult General Chief complaint: Extremity Injury, Lower Stated complaint: HIPS PAIN Time Seen by Provider: 05/16/25 10:10 Source: patient Mode of arrival: Wheelchair History of Present Illness HPI narrative: Patient is an 84-year-old female presenting to the emergency department with her daughter for concerns of left-sided hip pain. Patient states that 8 days ago she was walking down the stairs of her porch when she tripped, fell, and landed on her left hip. After the fall, she was able to stand up and ambulate. She typically uses a cane to help ambulate. She does live alone and is independent. Since the fall, she has been having progressively worsening left lower back pain. She denies any radiation of the pain down her legs. No loss of bladder/bowel function. No numbness/tingling in the lower extremities. She denies history of prior back surgeries. She states that sleeping on her left side/the affected side makes the pain better. She states that at rest she has no pain, but when she tries to walk or move her leg, the pain worsens. She has been using Voltaren cream and Tylenol which somewhat helped her symptoms. She denies any other injuries at that time. She did not hit her head or lose consciousness. She has no chest pain or shortness of breath. No abdominal pain, nausea, or vomiting. Related Data Home Medications ?Medication ?Instructions ?Recorded ?Confirmed diltiazem HCl 180 mg 180 mg PO DAILY 05/16/25 capsule,extended release 24 hr escitalopram oxalate 5 mg tablet 5 mg PO DAILY 5 05/16/25 metoprolol tartrate 100 mg tablet 100 mg PO BID 05/16/25 Allergies Allergy/AdvReac Type Severity Reaction Status Date / Time No Known Drug Allergies Allergy Verified 05/16/25 10:27 Review of Systems ROS Status of ROS 10 or more systems reviewed and unremark able except as noted in history and below Exam Narrative Exam Narrative: CONSTITUTIONAL: Well-appearing, answering questions and following commands appropriately SKIN: Was warm and dry, no abrasions, lacerations, or ecchymosis throughout the lower back or hips. EYES: Sclerae white. EARS, NOSE, THROAT: Moist oral mucosa. RESPIRATORY: Clear to auscultation bilaterally, no wheezes, crackles, or stridor, no use of accessory muscles CARDIOVASCULAR: Normal rate and regular rhythm. There is no S3, S4, murmur, rub. 2+ DP pulses bilaterally GASTROINTESTINAL: Abdomen is soft, nontender, and nondistended. No CVA tenderness. MUSCULOSKELETAL: No midline T/L-spine tenderness. Full range of motion of bilateral lower extremities, however with some pain with left hip flexion. No significant tenderness throughout the left hip/pelvis/lower back. No tenderness throughout the left knee or ankle/foot. NEUROLOGIC: Patient is awake and alert. 5/5 strength with left hip flexion/extension, knee flexion/extension, and left ankle dorsiflexion/plantarflexion. Sensation intact to light touch in the bilateral lower extremities into the groin. Facies were symmetrical. Constitutional Vital Signs, click to edit/add: Last Vital Signs Temp 97.8 F 05/16/25 10:12 Pulse 65 05/16/25 11:35 Resp 18 05/16/25 11:35 BP 132/75 05/16/25 11:35 Pulse Ox 97 05/16/25 11:35 O2 Del Method Room Air 05/16/25 11:35 Course Vital Signs Vital signs: Vital Signs Temperature 97.8 F 05/16/25 10:12 Pulse Rate 70 05/16/25 10:12 Respiratory Rate 18 05/16/25 10:12 Blood Pressure 134/73 05/16/25 10:12 Pulse Oximetry 98 05/16/25 10:12 Oxygen Delivery Method Room Air 05/16/25 10:12 Temperature 97.8 F 05/16/25 10:12 Pulse Rate 65 05/16/25 11:35 Respiratory Rate 18 05/16/25 11:35 Blood Pressure 132/75 05/16/25 11:35 Pulse Oximetry 97 05/16/25 11:35 Oxygen Delivery Method Room Air 05/16/25 11:35 Medical Decision Making MDM Narrative Medical decision making narrative: My clinical impression of the patient's back pain is musculoskeletal in nature, possibly related to lumbar radiculopathy. The patient is elderly and osteopenic, putting her at risk for compression fractures or other occult fractures. No findings that would be suggestive of cauda equina syndrome. No history of IV drug use, fevers, midline vertebral tenderness to suggest spinal epidural abscess. X-rays of the lumbar spine and left hip/pelvis are obtained. Urinalysis was obtained to rule out UTI, though this is of low likelihood. X-rays of the left hip, pelvis, and lumbar spine independently reviewed and interpreted by myself and radiology demonstrated T11 compression fracture, not present in 2022. She has no T-spine tenderness, this is likely an old fracture. Urinalysis was negative for acute infection. There was bacteria but this was a contaminant specimen. 0-2 WBCs without leukocyte esterase or nitrites. I do believe the patient stable for discharge. The patient was able to ambulate with the use of a walker without an appreciable limp. Her presentation is likely consistent with lower back musculoskeletal pain, possible radiculopathy. She was instructed to follow-up with her PCP for further care. Return precautions were given including any new or concerning symptoms. Patient and her daughter understand and agree to the plan. FINAL IMPRESSION: #Acute left lower back pain s/p mechanical fall DISPOSITION: Discharged home CONDITION: Good Lab Data Lab results reviewed: Yes I reviewed the patient's lab results Labs: Lab Results 05/16/25 Range/Units 11:25 Urine Color Dk. yellow (YELLOW) Urine Clarity Clear (CLEAR) Urine pH 5.5 (5.0-9.0) Ur Specific [place] 1.025 (1.005-1.025) Urine Protein 30 A (NEG/TRACE) mg/dL Urine Glucose (UA) Negative (NEGATIVE) mg/dL Urine Ketones 15 A (NEGATIVE) mg/dL Urine Occult Blood Negative (NEGATIVE) Urine Nitrite Negative (NEGATIVE) Urine Bilirubin Moderate A (NEGATIVE) Urine Urobilinogen 1.0 (0.2-1.0) EU/dL Ur Leukocyte Esterase Negative (NEGATIVE) Urine RBC 0-2 (0-2) #/HPF Urine WBC 0-2 A (NONE SEEN) #/HPF Ur Squamous Epith Cells Few A (NONE/RARE) #/LPF Urine Crystals None seen (None Seen) #/HPF Urine Bacteria Large A (NONE SEEN) #/HPF Urine Casts None seen (NONE SEEN) #/LPF Urine Mucus Trace A (NONE SEEN) Ur Culture Indicated? Yes-[facility] [place] Imaging Data lumbar xray: Attestation: I personally reviewed and interpreted this imaging study as follows: Radiologist's impression: ITS Impressions Hip X-Ray 05/16/25 10:25 IMPRESSION: OSTEOPENIA, SCOLIOSIS AND DEGENERATIVE CHANGES. T11 COMPRESSION FRACTURE, NOT PRESENT IN 2022. CORRELATION WITH SITE OF PATIENT'S PAIN IS RECOMMENDED. LEFT HIP - 2 views COMPARISON: CT 09/02/2022 AP and frog-lateral views of the left hip were obtained. Bony structures are osteopenic. No acute fracture or dislocation is identified. There is axial narrowing of the hip joint space. Minor marginal spurring is seen. No soft tissue abnormalities are present. Atherosclerotic disease is visualized in the [id number]. IMPRESSION: OSTEOPENIA AND MILD DEGENERATIVE CHANGE. NO ACUTE BONY FINDINGS. Impression dictated by: Ayana Barber M.D. 05/16/2025 11:17 AM Dictation Location: [facility] (formerly known as [facility]) Electronically authenticated by: [id number] Y Date: 05/16/2025 11:17 Lumbar Spine X-Ray 05/16/25 10:25 IMPRESSION: OSTEOPENIA, SCOLIOSIS AND DEGENERATIVE CHANGES. T11 COMPRESSION FRACTURE, NOT PRESENT IN 2022. CORRELATION WITH SITE OF PATIENT'S PAIN IS RECOMMENDED. LEFT HIP - 2 views COMPARISON: CT 09/02/2022 AP and frog-lateral views of the left hip were obtained. Bony structures are osteopenic. No acute fracture or dislocation is identified. There is axial narrowing of the hip joint space. Minor marginal spurring is seen. No soft tissue abnormalities are present. Atherosclerotic disease is visualized in the [id number]. IMPRESSION: OSTEOPENIA AND MILD DEGENERATIVE CHANGE. NO ACUTE BONY FINDINGS. Impression dictated by: Ayana Barber M.D. 05/16/2025 11:17 AM Dictation Location: [facility] (formerly known as [facility]) Electronically authenticated by: [id number] Y Date: 05/16/2025 11:17 Discharge Plan Discharge Chief Complaint: Extremity Injury, Lower Clinical Impression: Low back pain Patient Disposition: Home, Self-Care Time of Disposition Decision: 11:30 Condition: Good Mode of Transportation: Private Vehicle Prescriptions / Home Meds: No Action diltiazem HCl 180 mg capsule,extended release 24hr 180 mg PO DAILY metoprolol tartrate 100 mg tablet 100 mg PO BID escitalopram oxalate 5 mg tablet 5 mg PO DAILY Print Language: Iranian Instructions: Acute Low Back Pain (ED) Referrals: Andrae Bojorquez DO [Primary Care Provider, Internal Medicine] - 1 week Discharge Date/Time: 05/16/25 11:35
[2025-05-16 11:35] VITALS: BP 132/75; PULSE 65; O2SAT 97
[2025-05-16 11:52] LABS: Glucose Urine UA NEGATIVE (NEGATIVE)
[2025-05-16 12:07] LABS: Cast Seen? NONE SEEN #/LPF (NONE SEEN); Crystals Seen? None Seen #/HPF (None Seen); Urine Culture Indicated YES-FRMC
== END 2025-05-16 11:35 | disposition home or self-care (01) ==
PROVIDERS: Emergency Provider Student in an Organized Health Care Education/Training Program; PCP Internal Medicine
DX: M54.50 Low back pain, unspecified (principal); R82.998 Other abnormal findings in urine; Z91.81 History of falling
CPT/HCPCS: 72100; 73502; 81001; 87086; 87088; 87186; 99283